=== PATIENT | male | born 1960 | race Hispanic/Latino ===

== ENCOUNTER 2017-12-25 07:25 | Day surgery (SDC) | payer MEDICARE ==
[2017-12-24 10:35] VITALS: BMI 23.4
[2017-12-25] MEDS ORDERED: Atropine Sulfate 1 mg/10 ml Syringe ONE (08:54)
[2017-12-25] MEDS ORDERED: PROPOFOL 20 ML ONE (08:54)
[2017-12-25] MEDS ORDERED: Lidocaine 1% PF 5 ML VIAL ONE ×2 (08:54→15:42)
[2017-12-25] MEDS ORDERED: Apixaban 5 MG TAB PO SCH (09:15)
--- NOTE | 2017-12-25 09:53 | ECHO ---
TRANSESOPHAGEAL ECHOCARDIOGRAM: DATE OF SERVICE: 12/25/17 Mr. Powell was brought to the outpatient area for planned transesophageal echocardiogram. The anesthesia department provided anesthesia for the patient. Please see their notes for details. After adequate sedation was achieved, the transesophageal probe was inserted into the patient's mouth and into the esophagus successfully without any problems. Multiplanar views were then obtained. FINDINGS: Left ventricle appears to be normal size. LV function is reduced at about 30-35%, with global hypokin esis. Left atrium is mildly dilated. Left atrial appendage is occluded with no flow into or out of the appe ndage. Right ventricle is normal size. Right atrium is mildly dilated. Interatrial septum appears to be intact by color Doppler. Aortic valve has three cusps. No stenosis or regurgitation. Mitral valve structurally normal. There is mild MR. No stenosis. Tricuspid valve is structurally normal. Mild to moderate TR. No stenosis. Pulmonary valve structurally normal. No stenosis. Mild pulmonary insufficiency. Descending thoracic aorta has Grade II atherosclerotic disease. No aneurysmal dilatations or dissections. CONCLUSIONS: 1. Reduced systolic function, EF of 30-35%. 2. Mild biatrial enlargement. 3. Mild MR. 4. Mild to moderate TR. 5. Mild PI. 6. Left atrial appendage is occluded with no flow into or out of it, consistent with history of left atrial appendage ligation.
--- NOTE | 2017-12-25 09:56 | OP ---
CARDIOLOGY PROCEDURE NOTE: Date: 12/25/17 PREPROCEDURE DIAGNOSIS: Atrial fibrillation. PROCEDURE PERFORMED: Cardioversion. SUMMARY: Mr. Powell is a pleasant 57-year-old gentleman who comes to the outpatient area for plann ed cardioversion. Please see ALONDRA report preliminary reports. After his left atrial appendage was found to be occluded from a known ligation, he received a single synchronized 50 joules shock, successfully converting him from atrial fibrillation/atrial flutter int o sinus rhythm at 60 beats per minute. Patient tolerated the procedure well. Continue Eliquis and ami odarone for now. Will most likely stop Eliquis after 1 month.
[2017-12-25] MEDS ORDERED: PROPOFOL 200 MG/20 ML VIAL ONE (15:42)
== END 2017-12-25 10:08 | disposition home or self-care (01) ==
LOC: CCL 07:25
PROVIDERS: ATTEND Internal Medicine Cardiovascular Disease
DX: I48.1 Persistent atrial fibrillation (principal); I25.5 Ischemic cardiomyopathy; E11.22 Type 2 diabetes mellitus with diabetic chronic kidney disease; I12.0 Hypertensive chronic kidney disease with stage 5 chronic kidney disease or end stage renal disease; N18.6 End stage renal disease; F17.210 Nicotine dependence, cigarettes, uncomplicated; E78.5 Hyperlipidemia, unspecified; Z79.01 Long term (current) use of anticoagulants; Z79.82 Long term (current) use of aspirin; Z79.899 Other long term (current) drug therapy
CPT/HCPCS: 92960; 93312; J0461; J2001; J2704

== ENCOUNTER 2019-07-11 13:30 | Inpatient (IN) | payer MEDICARE ==
[2019-07-11 14:59] LABS: #Basophils 0.1 thou/uL (0.0-0.2); #Eosinphils 0.3 thou/uL (0.0-0.7); #Lymphocytes 1.4 thou/uL (1.20-3.40); #Monocytes 0.5 thou/uL (0.11-0.59); #Neutrophils 7.1 thou/uL (1.40-6.50); %Basophils 0.7 % (0.0-1.0); %Lymphocytes 15.2 % (21.0-51.0); %Monocytes 5.6 % (0.0-10.0); %Neutrophils 75.5 % (42.0-75.0); Hemoglobin 10.8 g/dL (14.0-18.0); Mean Corpuscular HGB CONC 33.6 g/dL (32.0-36.0); Mean Corpuscular Hemoglobin 30.7 pg (27.0-31.0); Mean Corpuscular Volume 91.5 fL (78.0-98.0); Mean Platelet Volume 8.9 fL (7.4-10.4); Platelet Count 198 thou/uL (130-400); RBC Distribution Width 12.7 % (11.5-14.5); White Blood Cell (WBC) Count 9.4 thou/uL (4.8-10.8)
[2019-07-11 15:22] LABS: ALT (SGPT) 9 U/L (8-55); AST (SGOT) 11 U/L (5-34); Albumin 3.7 g/dL (3.5-5.0); Alkaline Phosphatase 184 U/L (40-110); Anion Gap 17 mmol/L (10-20); BUN (Urea Nitrogen) 44 mg/dL (8.4-25.7); Bilirubin, Total 0.6 mg/dL (0.2-1.2); Calc. Creatinine Clearance 0 mL/min (70-130); Calcium 8.8 mg/dL (7.8-10.44); Carbon Dioxide 30 mmol/L (22-29); Chloride 90 mmol/L (98-107); Estimated GFR-MDRD 7; Glucose 376 mg/dL (70-105); Protein, Total 7.7 g/dL (6.0-8.3); Sodium 133 mmol/L (136-145)
--- NOTE | 2019-07-11 17:00 | RAD ---
EXAM: XR Foot Lt 3 View STANDARD PROVIDED CLINICAL HISTORY: Nonhealing wound COMPARISON: None FINDINGS: There is absence of the second digit distal phalanx and third digit, presumably on a postsurgical bas is. There is lucency/gas density seen within the soft tissues immediately distal to the remaining second digit presumably reflecting the provided clinical history of wound. There is no definite lytic change evident. No evidence for fracture. Alignment appears anatomic. Joint spaces appear preserved. Extensive vascular calcifications are seen. IMPRESSION: No radiographic evidence for osteomyelitis.
--- NOTE | 2019-07-11 18:28 | PDOC.HHP ---
Hospitalist HPI - History of Present Illness Gangrene of second right toe History of Present Illness: Mr. Powell is a 58 y/o gentleman with PMH of ESRD on HD, T2DM, HTN, who presents to the ED with gangrene of the second toe on the left lower exremity. 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 He states this happened after he clipped is toenail. He was given Vancomycin during his dialysis sessions, but states that the toe started turning more black in the past couple of days. Additionally, there was an area of redness which started forming around the toe. States that over the past 12 over the entire 2nd toe started to become black. Denies fever, chills, nausea, vomiting, cp, sob, or other associated sxs. Hospitalist ROS - Review of Systems Constitutional: denies: fever, chills, sweats, weakness, malaise, other Eyes: denies: pain, vision change, conjunctivae inflammation, eyelid inflammation, redness, other ENT: denies: ear pain, ear discharge, nose pain, nose discharge, nose congestion , mouth pain, mouth swelling, throat pain, throat swelling, other Respiratory: denies: cough, dry, shortness of breath, hemoptysis, SOB with excertion, pleuritic pain, sputum, wheezing, other Cardiovascular: denies: chest pain, palpitations, orthopnea, paroxysmal noc. dyspnea, edema, light headedness, other Gastrointestinal: denies: nausea, vomiting, abdominal pain, diarrhea, constipation, melena, hematochezia, other Genitourinary: denies: dysuria, frequency, incontinence, hematuria, retention, other Musculoskeletal: denies: neck pain, shoulder pain, arm pain, back pain, hand pain, leg pain, foot pain, other Skin: denies: rash, lesions, valentin, bruising, other Neurological: denies: weakness, numbness, incoordination, change in speech, confusion, seizures, other - Medication Medications: Medication Instructions Recorded Confirmed Type Carvedilol [Coreg] 3.125 mg PO BID-WM #0 tab 04/16/16 12/25/17 Rx Diltiazem CD [Cardizem CD] 120 mg PO DAILY #0 cap 04/18/16 12/25/17 Rx Aspirin [Ecotrin Regular Strength] 325 mg PO DAILY tab 04/30/16 12/25/17 Rx Ferrous Sulfate 325 mg PO DAILY #30 tablet 04/30/16 12/25/17 Rx Amiodarone HCl 1 tab PO DAILY 12/24/17 12/25/17 History Atorvastatin Calcium [Lipitor] 40 mg PO DAILY 12/24/17 12/25/17 History Calcitriol [Rocaltrol] 0.75 mcg PO ASDIR 12/24/17 12/25/17 History Calcium Carbonate [Tums Ultra 1 tab PO TID 12/24/17 12/24/17 History Strength] Cinacalcet HCl [Sensipar] 1 tab PO ASDIR 12/24/17 12/25/17 History Sucroferric Oxyhydroxide [Velphoro] 2 tab PO TID 12/24/17 12/24/17 History Vit D3-Vit K/Berberine/Hops 1 tab PO DAILY 12/24/17 12/25/17 History [Ostera Tablet] tiZANidine HCl [Tizanidine HCl] 1 tab PO Q8HR PRN 12/24/17 12/25/17 History Acetaminophen [Tylenol] 1,000 mg PO Q6HR PRN 12/25/17 12/25/17 History Amlodipine [Norvasc] 10 mg PO DAILY 12/25/17 12/25/17 History Apixaban [Eliquis] 5 mg PO BID 12/25/17 12/25/17 History Epoetin [Procrit] 10,000 units SC MWF 12/25/17 12/25/17 History HYDROcodone Bit/APAP 5/325 [[place] 2 tab PO Q6HR PRN 12/25/17 12/25/17 History 5/325] Hospitalist History - Past Medical History Cardiac: reports: HTN Pulmonary: reports: no pertinent history 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 Gastrointestinal: reports: no pertinent history Heme/Onc: reports: no pertinent history Hepatobiliary: reports: no pertinent history Psych: reports: no pertinent history Musculoskeletal: reports: no pertinent history Rheumatologic: reports: no pertinent history Infectious Disease: reports: no pertinent history ENT: reports: no pertinent history Renal/: reports: Chronic renal insuff Endocrine: reports: Diabetes Dermatology: reports: no pertinent history - Past Surgical History Past Surgical History: reports: Other (History of right BKA) - Family History Family History: reports: hypertension - Social History Smoking Status: Former smoker Tobacco Type: cigarettes Alcohol: reports: None Drugs: reports: none Living Situation: With Family Activity level: independent ambulation (uses prosthetic leg) - Exam General Appearance: NAD, awake alert Eye: PERRL, anicteric sclera ENT: normocephalic atraumatic, no oropharyngeal lesions, moist mucosa Neck: supple, symmetric, no JVD, no thyromegaly, no lymphadenopathy, no carotid bruit Heart: RRR, no murmur, no gallops, no rubs, normal peripheral pulses Respiratory: CTAB, no wheezes, no rales, no ronchi, normal chest expansion, no tachypnea, normal percussion Gastrointestinal: soft, non-tender, non-distended, normal bowel sounds, no palpable masses, no hepatomegaly, no splenomegaly, no bruit Extremities: no cyanosis, no clubbing, no edema Extremities - other findings: left foot, 2nd toe, necrotic, probe to bone, surrounding cellulits Skin: normal turgor, no lesions, no rashes Neurological: cranial nerve grossly intact, normal sensation to touch, no weakness, no focal deficits, no new deficit Musculoskeletal - other findings: Right BKA, chronic stump Psychiatric: normal affect, normal behavior, A&O x 3 Hospitalist Results - Labs Result Diagrams: 07/11/19 14:46 07/11/19 14:46 Lab results: WBC 9.4 thou/uL (4.8-10.8) 07/11/19 14:46 Hgb 10.8 g/dL (14.0-18.0) L 07/11/19 14:46 Hct 32.0 % (42.0-52.0) L 07/11/19 14:46 MCV 91.5 fL (78.0-98.0) 07/11/19 14:46 Plt Count 198 thou/uL (130-400) 07/11/19 14:46 Neutrophils % 75.5 % (42.0-75.0) H 07/11/19 14:46 ESR Westergren 78 mm/hr (Less than 20) 07/11/19 14:46 Sodium 133 mmol/L (136-145) L 07/11/19 14:46 Potassium 4.0 mmol/L (3.5-5.1) 07/11/19 14:46 Chloride 90 mmol/L (98-107) L 07/11/19 14:46 Carbon Dioxide 30 mmol/L (22-29) H 07/11/19 14:46 BUN 44 mg/dL (8.4-25.7) H 07/11/19 14:46 Creatinine 8.15 mg/dL (0.7-1.3) H 07/11/19 14:46 Glucose 376 mg/dL (70-105) H 07/11/19 14:46 Lactic Acid 1.7 mmol/L (0.5-2.2) 07/11/19 14:46 Calcium 8.8 mg/dL (7.8-10.44) 07/11/19 14:46 Total Bilirubin 0.6 mg/dL (0.2-1.2) 07/11/19 14:46 AST 11 U/L (5-34) 07/11/19 14:46 ALT 9 U/L (8-55) 07/11/19 14:46 Alkaline Phosphatase 184 U/L (40-110) H 07/11/19 14:46 C-Reactive Protein 8.07 mg/dL (= or < 0.5) H 07/11/19 14:46 Serum Total Protein 7.7 g/dL (6.0-8.3) 07/11/19 14:46 Albumin 3.7 g/dL (3.5-5.0) 07/11/19 14:46 Additional comment: VITAL SIGNS Mon Jul 11, 2019 18:03 LANDON Wu, Natalie BP: 213/79, MAP: 123, Pulse: 75, Resp: 16, Temp: 98.5 (Oral), Pain: 0, O2 sat: 99 on (Room Air), Time: 07/11/2019 18:03. Hospitalist H&P A/P - Problem (1) Gangrene of toe of left foot Code(s): I96 - GANGRENE, NOT ELSEWHERE CLASSIFIED Status: Acute (2) ESRD on hemodialysis Code(s): N18.6 - END STAGE RENAL DISEASE; Z99.2 - DEPENDENCE ON RENAL DIALYSIS Status: Chronic (3) T2DM (type 2 diabetes mellitus) Status: Chronic (4) History of below knee amputation Code(s): Z89.519 - ACQUIRED ABSENCE OF UNSPECIFIED LEG BELOW KNEE Status: Chronic (5) Hypertension Code(s): I10 - ESSENTIAL (PRIMARY) HYPERTENSION Status: Chronic - Plan Plan: Admit to med/surg inpatient. Likely > 2 midnight required in eval and tx Discussed with surgery team, they will likely take patient to OR tonight NPO for now Vancomycin dose as per pharmacy, follow up blood cultures XR of foot negative; however on exam bone is exposed US peripheral arterial study Consult nephro for dialysis as per schedule Medication reconciliation to be started DVT Prophyalxis: Hold for now, prior to surgery Code status: Full code ACP: is surrogate decision maker Disposition: Admit to surgical. Coordinate with surgical team, they are planning amputation of toe tonight. Follow up culture report.
[2019-07-11] MEDS ORDERED: Cefepime 2 GM VIAL ONE (18:32)
[2019-07-11] MEDS ORDERED: Vancomycin HCl 1.25 GM in Sodium Chloride 0.9% 250 ML 250 ML IVPB SCH (19:00)
--- NOTE | 2019-07-11 19:58 | HP ---
HISTORY OF PRESENT ILLNESS: Cynthia Powell is a 58-year-old male, dialyzes on Thursday, , and Thursday. He has developed a left second toe gangrene, rapidly progressive with cellulitis over the dorsum of his foot. He is status post right BKA. He has been followed by the dialysis center, watching the left second toe, he was referred to Dr. Arciniega, who recommended local wound care with the Nu Gauze. Dorsum of the foot became reddened. He presents to the emergency room. He has Doppler of dorsalis pedis pulse, palpable posterior tibial pulse and gangrene of the left second toe with exposed phalanx. Plan is for amputation of the left second toe. He understands risks and benefits, consents. PAST MEDICAL HISTORY: 1. Diabetes mellitus. 2. End-stage renal disease. 3. History of amputation. 4. BKA, right. 5. . 6. Diabetes mellitus type 2. 7. End-stage renal disease, dialysis on Thursday, , Thursday, followed by Dr. Caceres. 8. History of atrial fibrillation, cardioversion, followed by Dr. Erickson. PAST SURGICAL HISTORY: 1. Guillotine amputation, right leg, status post BKA. 2. Left eye surgery. 3. Left arm fistula. 4. Coronary artery bypass grafting, three vessels. ALLERGIES: ZOSYN. SOCIAL HISTORY: The patient lives in [place], has 3 children. Former tobacco use, cessation in the past. MEDICATIONS: 1. Aspirin. 2. Glipizide. 3. Iron. PHYSICAL EXAMINATION: VITAL SIGNS: 82 heart rate, 16 respirations, 98.2 degrees temperature. HEAD, EARS, EYES, NOSE, AND THROAT: Unremarkable. LUNGS: Clear to auscultation. CARDIAC: Regular rate and rhythm without murmur or gallop. ABDOMEN: Soft and nontender. EXTREMITIES: Unremarkable BKA, status post well-healed BKA stump. Left second toe gangrene, foul smelling, exposed phalanx. Palpable dorsalis pedis pulse. Palpable popliteal pulse. LABORATORY DATA: White count 9, hemoglobin 10. Sodium 133, potassium 4. ASSESSMENT: Left second toe gangrene. PLAN: Amputation, he has received vancomycin a few days ago . He understands possibly progression of the ischemic process. Currently, seems to have adequate blood supply. Job ID: [id number]
[2019-07-11] MEDS ORDERED: Fentanyl 100 MCG/2 ML VIAL SLOW IVP PRN (21:58)
[2019-07-11] MEDS ORDERED: HYDROcodone/Acetaminophen 5/325 mg Tablet PO PRN ×2 (21:59)
[2019-07-11] MEDS ORDERED: Ondansetron ODT 4 MG TAB SL PRN (21:59)
[2019-07-11] MEDS ORDERED: Acetaminophen 325 MG TAB PO PRN (21:59)
[2019-07-11] MEDS ORDERED: Ondansetron PF 4 MG/2 ML Vial IVP PRN (21:59)
[2019-07-11] MEDS ORDERED: Sodium Chloride 0.9% 1,000 ML IV SCH (21:59)
[2019-07-11 22:18] VITALS: BMI 20.8
[2019-07-11] MEDS ORDERED: Dextrose 5% in Water 1,000 ML IV PRN (22:32)
[2019-07-11] MEDS ORDERED: Dextrose 50% Abboject 50 ML SYRINGE SLOW IVP PRN (22:32)
[2019-07-11] MEDS ORDERED: HumaLOG 300 UNITS/3 ML VIAL SC PRN (22:32)
[2019-07-11] MEDS ORDERED: Carvedilol 3.125 MG TAB PO SCH (22:45)
[2019-07-11] MEDS ORDERED: Amlodipine 10 MG TAB PO SCH (22:45)
[2019-07-11] MEDS: hydrALAZINE 20 MG/ML VIAL SLOW IVP PRN (23:56)
[2019-07-12 06:46] LABS: Hemoglobin 10.3 g/dL (14.0-18.0); Mean Corpuscular HGB CONC 33.4 g/dL (32.0-36.0); Mean Corpuscular Hemoglobin 30.9 pg (27.0-31.0); Mean Corpuscular Volume 92.6 fL (78.0-98.0); Mean Platelet Volume 9.3 fL (7.4-10.4); Platelet Count 190 thou/uL (130-400); RBC Distribution Width 12.7 % (11.5-14.5); Red Blood Cell (RBC) Count 3.35 mill/uL (4.70-6.10); White Blood Cell (WBC) Count 8.3 thou/uL (4.8-10.8)
[2019-07-12 06:49] LABS: Eosinophils 1 % (0-10); Hypochromia SLIGHT = 6-15 cells (100X) (0-5/hpf); Lymphocytes 15 % (21-51); MDiff Complete? YES; Monocytes 4 % (0-10); Neutrophil 80 % (42-75); Platelet Morphology Comment Appears Adequate
--- NOTE | 2019-07-12 08:37 | ULT ---
LEFT LOWER EXTREMITY ARTERIAL ULTRASOUND: CLINICAL HISTORY: Left toe gangrene. FINDINGS: From the level of the common femoral artery through the level of the thigh there is a predominant bip hasic wave-form. Triphasic wave-form is elicited at the popliteal artery. Monophasic wave-forms are elicited below the level the knee. Peak systolic velocity of the left thigh is measured at 128 cm/s w ithin the common femoral artery. There is a notable drop in velocity from the level of the popliteal artery to the anterior tibial and posterior tibial arteries. IMPRESSION: Moderate to severe multifocal disease is depicted by sonographic evaluation of the left lower extremi ty arterial system. Most notable disease is suggested below the level of the popliteal artery. Correlation with conventional arteriogram may prove useful for further assessment. Transcribed Date/Time: 07/12/2019 8:53 AM
[2019-07-12] MEDS ORDERED: Vancomycin HCl 1 GM in Premix Bag 1 BAG IVPB SCH (09:00)
[2019-07-12] MEDS ORDERED: Vancomycin HCl 250 MG in Sodium Chloride 0.9% 100 ML IVPB SCH (09:00)
[2019-07-12] MEDS ORDERED: Vancomycin HCl 750 MG in Sodium Chloride 0.9% 250 ML 250 ML IVPB SCH (09:00)
[2019-07-12] MEDS ORDERED: Vancomycin HCl 500 MG in Sodium Chloride 0.9% 100 ML IVPB SCH (09:00)
[2019-07-12] MEDS ORDERED: HOLD VANCOMYCIN FOR LEVEL >20 FS SCH (09:00)
[2019-07-12] MEDS: Carvedilol 3.125 MG TAB PO SCH ×2 (09:39→18:44)
[2019-07-12] MEDS: Amlodipine 10 MG TAB PO SCH (09:39)
[2019-07-12 09:44] LABS: Vancomycin, Random 29.4 ug/mL (See Comment)
--- NOTE | 2019-07-12 09:58 | CON ---
DATE OF CONSULTATION: HISTORY OF PRESENT ILLNESS: Mr. Powell is a 58-year-old male with ESRD, on maintenance hemodialysis, and admitted for gangrenous 2nd left toe. He has a planned surgery. We are being consulted for management of his ESRD. I have scheduled him for dialysis this afternoon. He has surgery to be done at 7 p.m. REVIEW OF SYSTEMS: Positive for left 2nd toe discoloration. Denies any fever. No chest pain. No nausea or vomiting. No shortness of breath. No headache. No diplopia. Appetite and energy level are fair. No dysuria. No gross hematuria. No urinary frequency. No hematochezia. No melena. No hematemesis. MEDICATIONS: 1. Carvedilol 3.125 mg p.o. b.i.d. 2. Diltiazem CD 120 mg daily. 3. Aspirin 325 mg once a day. 4. Ferrous sulfate 325 mg once a day. 5. Amiodarone one tablet daily. 6. Atorvastatin 40 mg tablet nightly. 7. Calcitriol 0.75 mcg 3 times a week. 8. Sensipar one tablet 3 times a week. 9. Velphoro two tablets p.o. t.i.d. with meals. 10. Vitamin D3 one tablet daily. 11. Tizanidine one tablet q.8 p.r.n. 12. Amlodipine 10 mg once a day. 13. Eliquis 5 mg p.o. b.i.d. 14. Hydrocodone p.r.n. PAST MEDICAL HISTORY: 1. Peripheral vascular disease. 2. Longstanding hypertension. 3. ESRD from diabetic nephropathy. 4. Type 2 diabetes mellitus. 5. Hyperlipidemia. 6. Status post cellulitis. 7. Cardiac arrhythmia. PAST SURGICAL HISTORY: 1. Status post right great toe amputation. 2. Status post right BKA. 3. Status post AV fistula placement. 4. Status post cuffed hemodialysis catheter placement. 5. Status post right hand surgery. 6. Status post left eye surgery. SOCIAL HISTORY: The patient lives in [place], 3 children. He is . Smoked tobacco for 30 years, one pack a day. Alcohol, none. Education, high school. 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 FAMILY HISTORY: No family history of ESRD. ALLERGIES: NONE. TRAUMA: None. IMMUNIZATIONS: Up-to-date. HOSPITALIZATIONS: Please see past medical history. PHYSICAL EXAMINATION: VITAL SIGNS: Blood pressure is noted at 133/63, heart rate 73, respiratory rate 19, temperature 99.7, and pulse ox 98%. GENERAL: Noted to be awake, alert, comfortable, not in distress. SKIN: Adequate turgor. HEENT: Pinkish conjunctivae. Anicteric sclerae. NECK: No neck mass. No carotid bruits. No JVD. CHEST: No deformities. LUNGS: Clear breath sounds. No wheezing. No crackles. HEART: Normal sinus rhythm. No murmur. No gallops. No rubs. ABDOMEN: Globular, soft, and nontender. No masses. EXTREMITIES: Status post right BKA. He has left 2nd toe gangrenous lesion. LABORATORY DATA: On 07/12/2019: White count 8.3 and hemoglobin 10.3. On 07/11/2019: Sodium 133, potassium 4, chloride 90, carbon dioxide 30, BUN 44, creatinine 8.15, glucose 376, AST 11, and ALT 9. On 07/12/2019: Glucose 172. ASSESSMENT AND PLAN: 1. End-stage renal disease from diabetic nephropathy, continuing 3 times a week hemodialysis. I have scheduled him for his regular dialysis this afternoon. Review of his last Kt/V suggests he is adequately dialyzed with the current dialysis regimen. 2. Left 2nd toe gangrene, for possible toe amputation. Surgery is following. 3. Borderline anemia. We will continue to observe. 4. Agree with current management. Job ID: [id number]
[2019-07-12] MEDS ORDERED: PROPOFOL 200 MG/20 ML VIAL ONE (10:25)
[2019-07-12] MEDS ORDERED: Lidocaine 1% PF 5 ML VIAL ONE (10:25)
[2019-07-12] MEDS ORDERED: traMADol HCl 50 MG TAB PO PRN (10:38)
--- NOTE | 2019-07-12 14:47 | PDOC.HOSPP ---
- Subjective Subjective: No complaints this AM. Will go for surgery later today. NO sxs of fever, cough, or other sxs. - Objective Vital Signs & Weight: Vital Signs (12 hours) Temp Pulse Resp BP BP Pulse Ox 07/12/19 10:50 98.7 F 70 20 149/70 H 100 07/12/19 09:39 71 162/64 H 07/12/19 09:37 71 162/64 H 07/12/19 09:30 98.5 F 71 16 162/64 H 97 07/12/19 04:58 99.7 F H 73 19 133/63 98 Weight Weight 145 lb 8.081 oz I&O: 07/11/19 07/12/19 07/13/19 06:59 06:59 06:59 Intake Total 250 Balance 250 Result Diagrams: 07/12/19 05:50 07/11/19 14:46 Additional Labs: Accuchecks 07/12/19 07/11/19 05:42 22:14 POC Glucose 172 H 292 H Hospitalist ROS - Review of Systems Constitutional: denies: fever, chills, sweats, weakness, malaise, other Respiratory: denies: cough, dry, shortness of breath, hemoptysis, SOB with excertion, pleuritic pain, sputum, wheezing, other Cardiovascular: denies: chest pain, palpitations, orthopnea, paroxysmal noc. dyspnea, edema, light headedness, other Gastrointestinal: denies: nausea, vomiting, abdominal pain, diarrhea, constipation, melena, hematochezia, other - Medication Medications: Active Medications Generic Name Dose Route Start Last Admin Trade Name Arminq PRN Reason Stop Dose Admin Amlodipine Besylate 10 mg 07/12/19 09:00 07/12/19 09:39 Norvasc PO 10 mg DAILY CODEY Administration Carvedilol 3.125 mg 07/12/19 08:00 07/12/19 09:39 Coreg PO 3.125 mg BID-WM CODEY Administration Diltiazem HCl 120 mg 07/12/19 09:00 07/12/19 09:37 Cardizem Cd PO 120 mg DAILY CODEY Administration Hydralazine HCl 10 mg 07/11/19 23:39 07/11/19 23:56 Apresoline SLOW IVP 10 mg Q4H PRN Administration SBP Greater Than 180 Sodium Chloride 10 ml 07/11/19 21:00 07/12/19 09:39 Flush - Normal Saline IVF 10 ml Q12HR CODEY Administration - Exam General Appearance: NAD, awake alert Eye: PERRL, anicteric sclera ENT: normocephalic atraumatic, no oropharyngeal lesions, moist mucosa Neck: supple, symmetric, no JVD, no thyromegaly, no lymphadenopathy, no carotid bruit Heart: RRR, no murmur, no gallops, no rubs, normal peripheral pulses Respiratory: CTAB, no wheezes, no rales, no ronchi, normal chest expansion, no tachypnea, normal percussion Gastrointestinal: soft, non-tender, non-distended, normal bowel sounds, no palpable masses, no hepatomegaly, no splenomegaly, no bruit Extremities: no edema Extremities - other findings: periheral pulses diminished, gangrenous 2nd toe on left foot Skin: normal turgor, no lesions, no rashes Neurological: cranial nerve grossly intact, no weakness, no focal deficits, no new deficit Musculoskeletal: normal tone, normal strength, no muscle wasting Musculoskeletal - other findings: right BKA Psychiatric: normal affect, normal behavior, A&O x 3 Hosp A/P (1) Gangrene of toe of left foot Code(s): I96 - GANGRENE, NOT ELSEWHERE CLASSIFIED Status: Acute (2) ESRD on hemodialysis Code(s): N18.6 - END STAGE RENAL DISEASE; Z99.2 - DEPENDENCE ON RENAL DIALYSIS Status: Chronic (3) T2DM (type 2 diabetes mellitus) Status: Chronic (4) History of below knee amputation Code(s): Z89.519 - ACQUIRED ABSENCE OF UNSPECIFIED LEG BELOW KNEE Status: Chronic (5) Hypertension Code(s): I10 - ESSENTIAL (PRIMARY) HYPERTENSION Status: Chronic - Plan Continue vancomycin, dosed to [facility]/severe PVD below the level of the popliteal artery Continue wound care Continue dialysis as per nephro Disposition: Surgery this afternoon.
[2019-07-12] MEDS ORDERED: Cefepime 2 GM in Sodium Chloride 0.9% 100 ML IVPB SCH (16:45)
[2019-07-12] MEDS ORDERED: Fentanyl 100 MCG/2 ML VIAL ONE (17:51)
[2019-07-12] MEDS ORDERED: Ondansetron HCl/PF 4 MG/2 ML Vial IVP PRN (18:42)
[2019-07-12] MEDS ORDERED: Promethazine HCl 25 MG/ML VIAL IM PRN (18:42)
[2019-07-12] MEDS ORDERED: Promethazine HCl 25 MG/ML VIAL SLOW IVP PRN (18:42)
[2019-07-13] MEDS: HumaLOG 300 UNITS/3 ML VIAL SC PRN ×3 (06:51→18:37)
[2019-07-13 07:24] LABS: Bacteria/HPF None Seen HPF (None Seen); Bilirubin Negative (Negative); Blood, Urine Trace (Negative); Clarity Clear (Clear); Glucose, Urine (Dipstick) >=1000 mg/dL (Negative); Leukocyte Negative Leu/uL (Negative); Nitrite Negative (Negative); Protein, Urine (Dipstick) 600 mg/dL (Neg-Trace); RBC/HPF 0-3 HPF (0-3); Squamous Epithelial None Seen HPF (0-3); Urobilinogen Normal mg/dL (Less than 2); WBC/HPF 0-3 HPF (0-3)
[2019-07-13] MEDS: Acetaminophen 500 MG TAB PO PRN ×2 (09:11→18:38)
[2019-07-13] MEDS: hydrALAZINE 20 MG/ML VIAL SLOW IVP PRN (09:12)
[2019-07-13] MEDS: Amlodipine 10 MG TAB PO SCH (09:12)
[2019-07-13] MEDS: Carvedilol 3.125 MG TAB PO SCH ×2 (09:13→18:38)
--- NOTE | 2019-07-13 10:38 | PRG ---
DATE OF SERVICE: 07/13/2019 SUBJECTIVE: Mr. Powell is a 58-year-old male with ESRD and on maintenance hemodialysis. He underwent dialysis yesterday without any difficulty. He was admitted due to left second toe gangrene. He underwent a toe amputation with Dr. Almeida. In addition, the patient underwent a left lower extremity arterial ultrasound which showed [id number] multifocal disease. Most notable was that the disease was more below the level of the popliteal artery. No other complaints today. He denies any chest pain or shortness of breath. OBJECTIVE: VITAL SIGNS: Blood pressure 188/70, heart rate 77, respiratory rate 16, temperature 98.1, and pulse ox 98%. GENERAL: The patient is awake, alert, comfortable, not in overt distress. SKIN: Adequate turgor. HEENT: He has pinkish conjunctivae. Anicteric sclerae. NECK: No neck mass. No carotid bruits. No JVD. CHEST: No deformities. LUNGS: Clear breath sounds. HEART: Normal sinus rhythm. No murmur. No gallops. No rubs. ABDOMEN: Globular. Soft. Nontender. No masses. EXTREMITIES: No edema. Left foot, positive for a wound VAC. MEDICATIONS: Medications of July 13, 2019, were reviewed. LABORATORY DATA: Laboratories of July 12, 2019; white count 8.3, hemoglobin 10.3. Potassium 4.0, BUN 44, and creatinine 8.15. ASSESSMENT AND PLAN: 1. Borderline anemia. Start Epogen 7500 units subcu every week. 2. Left second toe gangrene - status post toe amputation. Continue supportive care. 3. Hypertension. Recently started on amlodipine 10 mg tablet once a day. 4. Agree with current management. Job ID: [id number]
[2019-07-13] MEDS ORDERED: EPOETIN ALFA-EPBX (ESRD) 4,000 UNIT/ML VIAL SC SCH (11:00)
--- NOTE | 2019-07-13 12:22 | PDOC.HOSPP ---
- Subjective Subjective: Has some episodes of diarrhea post surgery. He says he is fine but nursing staff has noticed BMs when cleaning him. No fever, chills, nausea, vomiting, cp , sob or other sxs. - Objective Vital Signs & Weight: Vital Signs (12 hours) Temp Pulse Resp BP BP Pulse Ox 07/13/19 09:12 77 188/70 H 07/13/19 09:05 98.7 F 77 16 188/70 H 98 07/13/19 03:20 98.1 F 72 16 154/71 H 98 Weight Weight 145 lb 8.081 oz I&O: 07/12/19 07/13/19 07/14/19 06:59 06:59 06:59 Intake Total 250 105 480 Output Total 1500 Balance 250 -1395 480 Result Diagrams: 07/12/19 05:50 07/11/19 14:46 Additional Labs: Accuchecks 07/13/19 07/12/19 07/12/19 05:54 20:44 16:48 POC Glucose 190 H 136 H 99 Hospitalist ROS - Review of Systems Constitutional: denies: fever, chills, sweats, weakness, malaise, other ENT: denies: ear pain, ear discharge, nose pain, nose discharge, nose congestion , mouth pain, mouth swelling, throat pain, throat swelling, other Respiratory: denies: cough, dry, shortness of breath, hemoptysis, SOB with excertion, pleuritic pain, sputum, wheezing, other Cardiovascular: denies: chest pain, palpitations, orthopnea, paroxysmal noc. dyspnea, edema, light headedness, other Gastrointestinal: denies: nausea, vomiting, abdominal pain, diarrhea, constipation, melena, hematochezia, other - Medication Medications: Active Medications Generic Name Dose Route Start Last Admin Trade Name Freq PRN Reason Stop Dose Admin Acetaminophen 1,000 mg 07/12/19 10:38 07/13/19 09:11 Tylenol PO 1,000 mg Q6H PRN Administration Moderate to Severe Pain (6-10) Amlodipine Besylate 10 mg 07/12/19 09:00 07/13/19 09:12 Norvasc PO 10 mg DAILY CODEY Administration Carvedilol 3.125 mg 07/12/19 08:00 07/13/19 09:13 Coreg PO 3.125 mg BID-WM CODEY Administration Diltiazem HCl 120 mg 07/12/19 09:00 07/13/19 09:12 Cardizem Cd PO 120 mg DAILY CODEY Administration Hydralazine HCl 10 mg 07/11/19 23:39 07/13/19 09:12 Apresoline SLOW IVP 10 mg Q4H PRN Administration SBP Greater Than 180 Insulin Human Lispro 0 units 07/11/19 22:32 07/13/19 06:51 Humalog SC 2 unit .MILD SLIDING SCALE PRN Administration Mild Correctional Scale Sodium Chloride 10 ml 07/11/19 21:00 07/13/19 09:13 Flush - Normal Saline IVF 10 ml Q12HR CODEY Administration - Exam General Appearance: NAD, awake alert Eye: PERRL, anicteric sclera ENT: normocephalic atraumatic, no oropharyngeal lesions, moist mucosa Neck: supple, symmetric, no JVD, no thyromegaly, no lymphadenopathy, no carotid bruit Heart: RRR, no murmur, no gallops, no rubs, normal peripheral pulses Respiratory: CTAB, no wheezes, no rales, no ronchi, normal chest expansion, no tachypnea, normal percussion Gastrointestinal: soft, non-tender, non-distended, normal bowel sounds, no palpable masses, no hepatomegaly, no splenomegaly, no bruit Extremities: no cyanosis, no clubbing, no edema Extremities - other findings: post amptuation of 2nd left toe, wound vac in place, history of right bka Skin: normal turgor, no lesions, no rashes Neurological: cranial nerve grossly intact, normal sensation to touch, no weakness, no focal deficits, no new deficit Musculoskeletal: normal tone, normal strength, no muscle wasting Psychiatric: normal affect, normal behavior, A&O x 3 Hosp A/P (1) Gangrene of toe of left foot Code(s): I96 - GANGRENE, NOT ELSEWHERE CLASSIFIED Status: Acute (2) ESRD on hemodialysis Code(s): N18.6 - END STAGE RENAL DISEASE; Z99.2 - DEPENDENCE ON RENAL DIALYSIS Status: Chronic (3) T2DM (type 2 diabetes mellitus) Status: Chronic (4) History of below knee amputation Code(s): Z89.519 - ACQUIRED ABSENCE OF UNSPECIFIED LEG BELOW KNEE Status: Chronic (5) Hypertension Code(s): I10 - ESSENTIAL (PRIMARY) HYPERTENSION Status: Chronic - Plan Continue vancomycin, dosed to ESRD with dialysis Wound care post surgery US peripheral vascular study shows moderate/severe PVD below the level of the popliteal artery Continue wound care Continue dialysis as per nephro Consult ID, as surgical culture is pending Disposition: Pending ID and further surgery reccs. Surgical wound culture pending. Wound care dispo pending.
--- NOTE | 2019-07-13 13:08 | PRG ---
DATE OF SERVICE: 07/13/2019 SUBJECTIVE: Mr. Powell is doing well today. He is not having any complaints. His pain is minimal. He has a wound VAC applied to his left foot from amputation of left second toe. At the time of operation, he had purulent discharge. Cultures obtained intraoperatively, revealed gram-negative rods. He is on antibiotics. Wound VAC is applied. PLAN: Plan at this time is to review his wound on Thursday. If his wound looks good, he can be discharged to home on oral antibiotics for a week and a half and to follow up in my office in 2 to 3 weeks. Continue wound VAC and intravenous antibiotics now. Keep pressure off his heels to prevent decubitus. Job ID: [id number]
[2019-07-14 06:12] LABS: #Basophils 0.1 thou/uL (0.0-0.2); #Eosinphils 0.5 thou/uL (0.0-0.7); #Monocytes 0.6 thou/uL (0.11-0.59); #Neutrophils 5.3 thou/uL (1.40-6.50); %Basophils 0.9 % (0.0-1.0); %Eosinophils 6.3 % (0.0-10.0); %Lymphocytes 23.3 % (21.0-51.0); %Monocytes 7.4 % (0.0-10.0); %Neutrophils 62.2 % (42.0-75.0); Hemoglobin 9.9 g/dL (14.0-18.0); Mean Corpuscular HGB CONC 32.9 g/dL (32.0-36.0); Mean Corpuscular Hemoglobin 29.7 pg (27.0-31.0); Mean Corpuscular Volume 90.2 fL (78.0-98.0); Mean Platelet Volume 9.3 fL (7.4-10.4); Platelet Count 180 thou/uL (130-400); RBC Distribution Width 12.8 % (11.5-14.5); Red Blood Cell (RBC) Count 3.35 mill/uL (4.70-6.10); White Blood Cell (WBC) Count 8.5 thou/uL (4.8-10.8)
[2019-07-14 06:39] LABS: Anion Gap 19 mmol/L (10-20); BUN (Urea Nitrogen) 37 mg/dL (8.4-25.7); Calc. Creatinine Clearance 11 mL/min (70-130); Calcium 8.3 mg/dL (7.8-10.44); Carbon Dioxide 23 mmol/L (22-29); Chloride 93 mmol/L (98-107); Estimated GFR-MDRD 8; Glucose 118 mg/dL (70-105); Potassium 4.5 mmol/L (3.5-5.1); Sodium 130 mmol/L (136-145)
[2019-07-14] MEDS: Carvedilol 3.125 MG TAB PO SCH ×2 (08:01→17:05)
[2019-07-14] MEDS: Amlodipine 10 MG TAB PO SCH ×2 (08:03→17:05)
--- NOTE | 2019-07-14 09:00 | PRG ---
DATE OF SERVICE: 07/14/2019 SERVICE: Renal Medicine. SUBJECTIVE: Mr. Powell is a 58-year-old male with ESRD, on maintenance hemodialysis and currently undergoing dialysis today. Attempting to remove between 2 and 3 L of fluid. He recently had a left second toe amputation done due to gangrene. He is doing well since the surgery. He is on IV antibiotics. No other complaints. No chest pain or shortness of breath. OBJECTIVE: VITAL SIGNS: Blood pressure 132/52, heart rate 66, respiratory rate 16, temperature 98.3, and pulse ox 97%. GENERAL: Noted to be awake, alert, comfortable, not in distress. SKIN: Adequate turgor. HEENT: Pinkish conjunctivae. Anicteric sclerae. NECK: No neck mass. No carotid bruits. No JVD. CHEST: No deformities. LUNGS: Clear breath sounds. No wheezing. No crackles. HEART: Normal sinus rhythm. No murmur. No gallops. No rubs. ABDOMEN: Globular, soft, and nontender. No masses. EXTREMITIES: Status post right BKA, status post second left toe amputation - positive wound VAC on the left foot. MEDICATIONS: Medications of July 14, 2019, was reviewed. LABORATORY DATA: Laboratories of July 14, 2019, white count 8.5, hemoglobin 9.9. Sodium 130, potassium 4.5, chloride 93, carbon dioxide 23, BUN 37, creatinine 7.19, glucose 118, and calcium 8.3. ASSESSMENT AND PLAN: 1. End-stage renal disease, stable, continuing Thursday, , and Thursday hemodialysis regimen, using no heparin due to the recent foot surgery. Fluid removal only as tolerated. 2. Second left toe infection - status post toe amputation. Doing well on wound VAC and on IV antibiotics. Surgery is following. 3. Anemia, continuing weekly Epogen. Job ID: [id number]
--- NOTE | 2019-07-14 12:55 | PDOC.HOSPP ---
- Subjective Encounter Date: 07/14/19 Encounter Time: 09:00 Subjective: getting HD, no sob or pain - Objective Vital Signs & Weight: Vital Signs (12 hours) Temp Pulse Resp BP BP Pulse Ox 07/14/19 08:03 66 132/52 L 07/14/19 07:40 97 07/14/19 07:32 98.3 F 66 16 132/52 L 97 07/14/19 04:55 98 F 65 16 130/67 98 Weight Weight 145 lb 8.081 oz I&O: 07/13/19 07/14/19 07/15/19 06:59 06:59 06:59 Intake Total 105 1605 Output Total 1500 Balance -1395 1605 Result Diagrams: 07/14/19 05:41 07/14/19 05:41 Additional Labs: Accuchecks 07/14/19 07/13/19 07/13/19 05:48 21:18 16:39 POC Glucose 129 H 214 H 242 H 07/13/19 13:09 POC Glucose 273 H Hospitalist ROS - Medication Medications: Active Medications Generic Name Dose Route Start Last Admin Trade Name Freq PRN Reason Stop Dose Admin Acetaminophen 1,000 mg 07/12/19 10:38 07/13/19 18:38 Tylenol PO 1,000 mg Q6H PRN Administration Moderate to Severe Pain (6-10) Amlodipine Besylate 10 mg 07/12/19 09:00 07/14/19 08:03 Norvasc PO Not Given DAILY [facility] Carvedilol 3.125 mg 07/12/19 08:00 07/14/19 08:01 Coreg PO Not Given BID-[facility] Diltiazem HCl 120 mg 07/12/19 09:00 07/14/19 08:03 Cardizem Cd PO Not Given DAILY CODEY Epoetin Zac-epbx 7,500 unit 07/13/19 11:00 07/13/19 13:09 Retacrit SC 7,500 unit Q7D CODEY Administration Hydralazine HCl 10 mg 07/11/19 23:39 07/13/19 09:12 Apresoline SLOW IVP 10 mg Q4H PRN Administration SBP Greater Than 180 Insulin Human Lispro 0 units 07/11/19 22:32 07/13/19 18:37 Humalog SC 3 unit .MILD SLIDING SCALE PRN Administration Mild Correctional Scale Insulin Human Lispro 0 units 07/11/19 22:32 07/13/19 22:05 Humalog SC 2 unit .BEDTIME SLIDING SC PRN Administration Bedtime Correctional Scale Sodium Chloride 10 ml 07/11/19 21:00 07/14/19 08:03 Flush - Normal Saline IVF Not Given Q12HR CODEY - Exam General Appearance: awake alert Eye: PERRL, anicteric sclera ENT: no oropharyngeal lesions, moist mucosa Neck: supple, no JVD Heart: RRR, no murmur Respiratory: no wheezes, no rales Gastrointestinal: soft, non-tender, non-distended, normal bowel sounds Extremities: no cyanosis Extremities - other findings: left foot in dressing and wound vac, right bka Neurological: cranial nerve grossly intact, no focal deficits Psychiatric: normal affect, A&O x 3 Hosp A/P (1) Gangrene of toe of left foot Code(s): I96 - GANGRENE, NOT ELSEWHERE CLASSIFIED Status: Acute (2) ESRD on hemodialysis Code(s): N18.6 - END STAGE RENAL DISEASE; Z99.2 - DEPENDENCE ON RENAL DIALYSIS Status: Chronic (3) History of below knee amputation Code(s): Z89.519 - ACQUIRED ABSENCE OF UNSPECIFIED LEG BELOW KNEE Status: Chronic Qualifiers: Laterality: right Qualified Code(s): Z89.511 - Acquired absence of right leg below knee (4) Hypertension Code(s): I10 - ESSENTIAL (PRIMARY) HYPERTENSION Status: Chronic Qualifiers: Hypertension type: essential hypertension Qualified Code(s): I10 - Essential (primary) hypertension (5) T2DM (type 2 diabetes mellitus) Status: Chronic Qualifiers: Diabetes mellitus ferry terminal supervisor insulin use: without ferry terminal supervisor use Diabetes mellitus complication status: with kidney complications Diabetes mellitus complication detail: with chronic kidney disease Chronic kidney disease stage : on chronic dialysis Qualified Code(s): E11.22 - Type 2 diabetes mellitus with diabetic chronic kidney disease; N18.6 - End stage renal disease; Z99.2 - Dependence on renal dialysis (6) CAD (coronary artery disease) Code(s): I25.10 - ATHSCL HEART DISEASE OF [place] CORONARY ARTERY W/O ANG PCTRS Status: Chronic Qualifiers: Coronary Disease-Associated Artery/Lesion type: bypass graft [place] vs. transplanted heart: [place] heart Associated angina: without angina Qualified Code(s): I25.810 - Atherosclerosis of coronary artery bypass graft(s) without angina pectoris (7) Diabetes Mellitus Type 2 in Nonobese Code(s): E11.9 - TYPE 2 DIABETES MELLITUS WITHOUT COMPLICATIONS Status: Chronic (8) Dyslipidemia Code(s): E78.5 - HYPERLIPIDEMIA, UNSPECIFIED Status: Chronic (9) ESRD (end stage renal disease) on dialysis Code(s): N18.6 - END STAGE RENAL DISEASE; Z99.2 - DEPENDENCE ON RENAL DIALYSIS Status: Chronic (10) New onset atrial fibrillation Code(s): I48.91 - UNSPECIFIED ATRIAL FIBRILLATION Status: Chronic (11) PVD (peripheral vascular disease) Code(s): I73.9 - PERIPHERAL VASCULAR DISEASE, UNSPECIFIED Status: Chronic - Plan is on vanc HD sliding scale cefipime has been dc'd by surgery has wound vac, needs outpt wound care appt continue norarmin valdes cardizem cd dc plan per gen surgery adv
--- NOTE | 2019-07-14 15:19 | CON ---
DATE OF CONSULTATION: REASON FOR CONSULTATION: Left toe gangrene, status post amputation. HISTORY OF PRESENT ILLNESS: A 58-year-old, whom I had seen in 2016, who has a history of type 2 diabetes, peripheral vascular disease, previous right below-knee amputation for complications of necrotizing infection. In March 2016, he had some issues with his right leg BKA site and that was treated as osteomyelitis and it healed. At this time about in 3 to 4 years later, he comes in with left second toe discoloration. The initial findings included a temperature 98.2, O2 saturation 99, blood pressure 119/71. There was evidence of left second toe gangrene with bone exposure. The patient had amputation of the toe at the MPJ level by Dr. Almeida. The pathology is pending at this time currently denied. The patient denies any headaches. He has poor vision bilaterally due to complications of diabetes and cataracts. Denies any respiratory symptoms. No abdominal pain. He still has some urinary output. No diarrhea or bleeding. No neurological symptoms that are focal. PAST MEDICAL HISTORY: Type 2 diabetes, peripheral vascular disease, right BKA, coronary artery disease with bypass graft surgery, AV fistula in left upper extremity, hemodialysis. SOCIAL HISTORY: Former smoker, quit more than 10 years before. Lives in [place]. Has dialysis in the area. ALLERGIES: NONE. FAMILY HISTORY: Diabetes type 2 and coronary artery disease. CURRENT MEDICATIONS: 1. Norvasc. 2. Coreg. 3. Dextrose. 4. Cardizem. 5. Epoetin. 6. Insulin. 7. Vancomycin. 8. Sliding scale. 9. Tramadol. PHYSICAL EXAMINATION: VITAL SIGNS: Temperature max 99.7, blood pressure 140/60, pulse 76, respirations 16, O2 saturation 98%. SKIN: With the area of gangrene of second toe left foot, areas of onycholysis in the right BKA with intact amputation site. Postop findings showed a fresh red tissue at the base of the MPJ skin site after amputation. The patient has a peripheral IV access and is voiding in the urinal. No lymphadenopathy. HEENT: Ocular movements conjugate. Pupils are equal. He has only a few remaining teeth with marked decay and gum disease. NECK: Supple with jugular vein distention. LUNGS: Symmetric breath sounds. A few crackles on the right side, which was somewhat faint and clear after coughing. HEART: S1 and S2. Regular rate without murmurs. ABDOMEN: Soft, nondistended. No ascites. No bladder distention. No genital abnormalities. I could not feel any popliteal pulses and certainly no dorsalis pedis on the left side. EXTREMITIES: Cap refill is delayed. Warm to touch. He is able to move extremities on command. NEUROLOGIC: He is oriented. Follows commands. Speech is normal. Recollection is normal. LABORATORY DATA: White cell count 9.4 and 8.5, hemoglobin 10.8 and 9.9, platelets 180 with normal differential after admission. Creatinine 7.19, sodium 130. Liver profile normal. Alkaline phosphatase 184. Albumin 3.7, globulin 4.0. Urinalysis was essentially normal except for proteinuria. A random vancomycin level 29 and microbiology with pending results. We have one sample from the toe with gram-negative rods mixed enteric vivek. IMAGING DATA: There is a lower extremity ultrasound with severe multifocal disease in the left lower extremity below the trifurcation. The foot x-ray without findings of significance. IMPRESSION: Type 2 diabetes, peripheral vascular disease, previous right below-knee amputation, now with gangrene of the second toe, status post amputation at the MPJ level in the setting of severe peripheral vascular disease with likely small vessel disease and below trifurcation level disease. DISCUSSION: The main issue here is going to be the vascular disease in the healing potential and to determine that the patient can have oximetry or just plain angiogram to see if he is eligible for revascularization of proximal vessels to improve blood flow/blood supply to the foot and improve the chances for healing. Antimicrobial therapy in this setting would have an ancillary role only and we will follow the culture results and then determine if he is going to need anything hopefully given orally plus-minus vancomycin, sliding scale in dialysis in the outpatient setting. But again the primary issue here is the vascular insufficiency, and if there are no options for improvement of that, then the likelihood of higher level amputation is high. Job ID: [id number]
--- NOTE | 2019-07-14 16:57 | PRG ---
DATE OF SERVICE: 07/14/2019 Mr. Powell doing well. He has a VAC on his left foot. We will view his wound tomorrow. He should be able to go home on oral antibiotics tomorrow. I will view the wound tomorrow with wound care and hopefully he will have his home back acquired. Job ID: [id number]
[2019-07-14] MEDS ORDERED: Amlodipine 10 MG TAB PO SCH (17:00)
--- NOTE | 2019-07-14 17:06 | OP ---
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 PROCEDURE PERFORMED: Amputation of left second toe to the proximal phalanx with the wound left open for healing by secondary intention. FINDINGS: Purulent material sent for culture. Gram-negative rods noted on Gram stain. Good blood supply. Wound dressing applied for VAC application tomorrow. ANESTHESIA: Sedation. DESCRIPTION OF PROCEDURE: The patient was taken to the operating room, where under intravenous sedation, left lower extremity was prepared with ChloraPrep and draped in routine fashion. Incision was made for amputation of the left second toe to the proximal phalanx, and bone was transected with a bone cutter. There was purulent material extending up in the foot. This was cultured. It was irrigated. The proximal phalanx was resected proximally with rongeurs back to healthy bone. Wound was irrigated. Hemostasis was noted. Cautery was required. Connective tissue and tendon debris were debrided. A gauze dressing was applied until wound VAC can be applied tomorrow. The patient tolerated the procedure well. Job ID: [id number]
[2019-07-14] MEDS: HumaLOG 300 UNITS/3 ML VIAL SC PRN (17:07)
[2019-07-15 05:24] LABS: #Basophils 0.1 thou/uL (0.0-0.2); #Eosinphils 0.5 thou/uL (0.0-0.7); #Monocytes 0.7 thou/uL (0.11-0.59); #Neutrophils 5.2 thou/uL (1.40-6.50); %Basophils 0.8 % (0.0-1.0); %Eosinophils 6.1 % (0.0-10.0); %Lymphocytes 23.8 % (21.0-51.0); %Monocytes 7.9 % (0.0-10.0); %Neutrophils 61.4 % (42.0-75.0); Hemoglobin 10.3 g/dL (14.0-18.0); Mean Corpuscular Hemoglobin 29.8 pg (27.0-31.0); Mean Corpuscular Volume 90.5 fL (78.0-98.0); Mean Platelet Volume 9.4 fL (7.4-10.4); Platelet Count 211 thou/uL (130-400); RBC Distribution Width 12.7 % (11.5-14.5); Red Blood Cell (RBC) Count 3.46 mill/uL (4.70-6.10); White Blood Cell (WBC) Count 8.4 thou/uL (4.8-10.8)
[2019-07-15 05:46] LABS: Anion Gap 15 mmol/L (10-20); BUN (Urea Nitrogen) 21 mg/dL (8.4-25.7); Calc. Creatinine Clearance 15 mL/min (70-130); Calcium 8.6 mg/dL (7.8-10.44); Carbon Dioxide 30 mmol/L (22-29); Chloride 96 mmol/L (98-107); Estimated GFR-MDRD 12; Glucose 264 mg/dL (70-105); Potassium 4.8 mmol/L (3.5-5.1); Sodium 136 mmol/L (136-145)
[2019-07-15] MEDS: HumaLOG 300 UNITS/3 ML VIAL SC PRN ×3 (05:51→16:48)
[2019-07-15] MEDS: Carvedilol 3.125 MG TAB PO SCH ×2 (08:52→16:47)
[2019-07-15] MEDS: Amlodipine 10 MG TAB PO SCH (08:52)
[2019-07-15] MEDS ORDERED: traMADol HCl 50 MG TAB PO PRN (10:27)
[2019-07-15 15:31] VITALS: BP 111/49; TEMP 98
--- NOTE | 2019-07-15 18:47 | DIS ---
DATE OF ADMISSION: 07/11/2019 DATE OF DISCHARGE: 07/15/2019 DISCHARGE DISPOSITION: To home with wound care. PRIMARY DISCHARGE DIAGNOSES: Left second toe gangrene status post amputation of left second toe with wound open for secondary intention healing. SECONDARY DISCHARGE DIAGNOSES: End-stage renal disease on hemodialysis, diabetes mellitus type 2, history of right below-knee amputation, hypertension, and peripheral vascular disease. PROCEDURES DONE DURING HOSPITALIZATION: The patient has had amputation of left second toe done by Dr. Almeida. Postprocedure, the wound is in a wound VAC. Left lower extremity arterial Doppler done showed [id number] multifocal disease in the left lower arterial system, most notable disease is suggested below the level of popliteal artery. Left foot three-view x-ray done showed no evidence of osteomyelitis. Wound cultures are growing Prevotella corporis. Blood cultures x2, no growth. White count of 8.4, H and H 10 and 31, and platelet count 211. Sedimentation rate was 78. BUN 21, and creatinine 5.1. CRP 8.0. DISCHARGE MEDICATIONS: 1. Vancomycin. 2. Sliding scale with hemodialysis for 2 weeks. 3. Levaquin 250 mg p.o. daily for 2 weeks. 4. Ultram 50 mg p.o. q.6 hourly p.r.n. 5. Ferrous sulfate 325 mg p.o. daily. 6. Cardizem CD 120 mg p.o. daily. 7. Coreg 3.125 mg p.o. twice daily. 8. Aspirin 325 mg p.o. daily. 9. Norvasc 10 mg p.o. daily. 10. [place] p.r.n. for pain. 11. Atorvastatin 40 mg p.o. daily. 12. Amiodarone 200 mg p.o. daily. ALLERGIES: NO KNOWN DRUG ALLERGIES. INPATIENT CONSULT: Dr. Caceres for Nephrology, Dr. Almeida for General Surgery, and Dr. Strickland for Infectious Disease. DISCHARGE PLAN: The patient to follow up with Dr. Almeida as advised. He has outpatient wound care appointment on Thursday. He needs to follow up with Dr. Schilling, his primary care physician in 1 week. BRIEF COURSE DURING HOSPITALIZATION: The patient initially got admitted on the with complaints of left second toe swelling, edema, and discoloration. The patient was found to have had left second toe gangrene. He has had consultation with Dr. Almeida. The patient has had amputation of left second toe done and the wound was left in wound VAC. He was on IV antibiotics and has been transitioned to vancomycin with hemodialysis and Levaquin orally for a total duration of 2 weeks. He has had consultation with Dr. Caceres for hemodialysis/Nephrology and Dr. Strickland for Infectious Disease. He is hemodynamically stable. Prior to discharge, he is eating well. Case Management consultation was requested for help with discharge planning including wound VAC, outpatient wound care appointments, and vancomycin with dialysis, which has been arranged now. Please note I have seen and examined the patient on the day of discharge. Job ID: [id number] [id number]
== END 2019-07-15 18:55 | disposition home or self-care (01) | DRG 255 ==
LOC: ERS 13:30 → SURG A 22:01
PROVIDERS: ADMIT Internal Medicine; ATTEND Internal Medicine
PROC: 5A1D70Z Performance of Urinary Filtration, Intermittent, Less than 6 Hours Per Day (ICD-10-PCS; principal; 2019-07-12)
PROC: 0Y6S0Z1 Detachment at Left 2nd Toe, High, Open Approach (ICD-10-PCS; 2019-07-12)
DX: E11.52 Type 2 diabetes mellitus with diabetic peripheral angiopathy with gangrene (principal); N18.6 End stage renal disease; I96 Gangrene, not elsewhere classified; M86.8X8 Other osteomyelitis, other site; E11.69 Type 2 diabetes mellitus with other specified complication; E11.22 Type 2 diabetes mellitus with diabetic chronic kidney disease; I48.91 Unspecified atrial fibrillation; L03.032 Cellulitis of left toe; E78.5 Hyperlipidemia, unspecified; E11.21 Type 2 diabetes mellitus with diabetic nephropathy; D64.9 Anemia, unspecified; I25.10 Atherosclerotic heart disease of native coronary artery without angina pectoris; Z95.1 Presence of aortocoronary bypass graft; Z89.511 Acquired absence of right leg below knee; Z88.1 Allergy status to other antibiotic agents; Z87.891 Personal history of nicotine dependence; Z99.2 Dependence on renal dialysis; Z79.4 Long term (current) use of insulin
CPT/HCPCS: 36415; 36416; 80048; 80053; 80202; 81001; 83605; 85007; 85025; 85027; 85652; 86140; 87040; 87070; 87076; 87205; 88305; 88311; 90935; 93923; 96365; G0257; J0360; J0692; J2001; J2704; J3010; J3370; J7050; Q5105

== ENCOUNTER 2021-05-23 16:45 | Outpatient (CLI) | payer MEDICARE ==
[2021-05-24 15:33] LABS: SARS-CoV-2 PCR by NAA Not Detected (NotDetected)
== END 2021-05-23 16:46 | disposition home or self-care (01) ==
LOC: LABBT 16:45
PROVIDERS: ATTEND Thoracic Surgery (Cardiothoracic Vascular Surgery)
DX: Z01.812 Encounter for preprocedural laboratory examination (principal); Z20.822 Contact with and (suspected) exposure to COVID-19
CPT/HCPCS: U0003; U0005

== ENCOUNTER 2021-05-23 17:45 | Inpatient (IN) | payer MEDICARE ==
[2021-05-27] MEDS ORDERED: Dexamethasone 4 mg/ml Vial ONE (06:27)
[2021-05-27] MEDS ORDERED: Protamine Sulfate 50 MG/5 ML VIAL ONE (06:27)
[2021-05-27] MEDS ORDERED: Heparin 5,000 UNITS/ML VIAL ONE (06:27)
[2021-05-27] MEDS ORDERED: Bupivacaine PF 0.5% 30 ML VIAL ONE (06:27)
[2021-05-27] MEDS ORDERED: EPINEPHrine 1 MG/ML AMP ONE (06:27)
[2021-05-27] MEDS ORDERED: Fentanyl 100 MCG/2 ML VIAL ONE ×2 (07:09→12:24)
[2021-05-27] MEDS ORDERED: Midazolam HCl 2 mg/2 ml Vial ONE (07:09)
[2021-05-27 07:23] LABS: Mean Corpuscular Hemoglobin 32.3 pg (27.0-31.0); Mean Corpuscular Volume 95.2 fL (78.0-98.0); Mean Platelet Volume 11.7 fL (7.4-10.4); Platelet Count 75 thou/uL (130-400); RBC Distribution Width 15.3 % (11.5-14.5); Red Blood Cell (RBC) Count 3.71 mill/uL (4.70-6.10); White Blood Cell (WBC) Count 6.2 thou/uL (4.8-10.8)
[2021-05-27] MEDS ORDERED: Labetalol HCl 100 MG/20 ML VIAL ONE (07:23)
[2021-05-27] MEDS ORDERED: Lidocaine 1% PF 5 ML VIAL ONE (07:23)
[2021-05-27] MEDS ORDERED: Ondansetron PF 4 MG/2 ML Vial ONE (07:23)
[2021-05-27] MEDS ORDERED: Rocuronium Bromide 10 MG/ML (10ML VIAL) ONE (07:23)
[2021-05-27] MEDS ORDERED: Dexamethasone 20 MG/5 ML VIAL ONE (07:23)
[2021-05-27] MEDS ORDERED: PROPOFOL 200 MG/20 ML VIAL ONE (07:23)
[2021-05-27] MEDS ORDERED: Glycopyrrolate 0.2 MG/ML 5 ML SYRINGE ONE (07:23)
[2021-05-27] MEDS ORDERED: PHENYLEPHRINE-NS 100 MCG/ML 10 ML SYRINGE ONE (07:23)
[2021-05-27 07:29] LABS: Anion Gap 18 mmol/L (10-20); BUN (Urea Nitrogen) 60 mg/dL (8.4-25.7); Calc. Creatinine Clearance 13 mL/min (70-130); Calcium 9.4 mg/dL (7.8-10.44); Carbon Dioxide 29 mmol/L (22-29); Chloride 92 mmol/L (98-107); Glucose 370 mg/dL (70-105); Potassium 5.3 mmol/L (3.5-5.1); Sodium 134 mmol/L (136-145)
[2021-05-27] MEDS ORDERED: Acetaminophen 325 MG TAB PO PRN (09:23)
[2021-05-27] MEDS ORDERED: niCARdipine 25 MG in Sodium Chloride 0.9% 250 ML 250 ML IVPB PRN (09:23)
[2021-05-27] MEDS ORDERED: Nitroglycerin 50 MG/250 ML BOT 250 ML IVPB PRN (09:23)
[2021-05-27] MEDS ORDERED: Phenylephrine 40 MG in Sodium Chloride 0.9% 250 ML 246 ML IVPB PRN (09:23)
[2021-05-27] MEDS ORDERED: Fentanyl 100 MCG/2 ML VIAL SLOW IVP PRN (09:23)
[2021-05-27] MEDS ORDERED: Ondansetron PF 4 MG/2 ML Vial IVP PRN (09:23)
[2021-05-27] MEDS ORDERED: hydrALAZINE 20 MG/ML VIAL ONE (09:30)
[2021-05-27] MEDS ORDERED: Atorvastatin Calcium 40 MG TAB PO SCH (11:15)
[2021-05-27] MEDS ORDERED: Cholecalciferol 1,000 UNITS (25 MCG) TAB PO SCH (11:30)
[2021-05-27] MEDS ORDERED: Levothyroxine Sodium 50 MCG TAB PO SCH (11:30)
[2021-05-27] MEDS ORDERED: Sodium Chloride 0.9% 10 ML ONE (11:37)
[2021-05-27] MEDS: hydrALAZINE 20 MG/ML VIAL SLOW IVP PRN ×2 (11:40→22:42)
[2021-05-27 11:41] VITALS: BP 144/56
[2021-05-27] MEDS: CEFAZOLIN 2 GM, Admixture Fee 1 EACH in Sodium Chloride 0.9% 100 ML IVPB SCH ×2 (14:45→22:41)
[2021-05-27] MEDS: Clindamycin 150 MG CAP PO SCH ×2 (14:47→18:15)
[2021-05-27] MEDS: Sodium Chloride 0.9% 1,000 ML IV SCH ×2 (14:54→19:00)
[2021-05-27 15:19] VITALS: BMI 22.1
[2021-05-27] MEDS: Carvedilol 3.125 MG TAB PO SCH (18:14)
[2021-05-28] MEDS: Clindamycin 150 MG CAP PO SCH ×3 (00:11→11:03)
[2021-05-28] MEDS: Sodium Chloride 0.9% 1,000 ML IV SCH (05:23)
[2021-05-28] MEDS ORDERED: Levothyroxine Sodium 50 MCG TAB PO SCH (06:00)
[2021-05-28] MEDS ORDERED: CEFAZOLIN 2 GM, Admixture Fee 1 EACH in Sodium Chloride 0.9% 100 ML IVPB SCH (07:00)
[2021-05-28] MEDS ORDERED: Ferrous Sulfate 325 MG TAB PO SCH (08:00)
[2021-05-28 08:34] VITALS: TEMP 98
[2021-05-28] MEDS ORDERED: Atorvastatin Calcium 40 MG TAB PO SCH (09:00)
[2021-05-28] MEDS ORDERED: FLU VACC QS2021-22(6MOS UP)/PF 60 MCG/0.5 ML SYRINGE IM ONE (09:00)
[2021-05-28] MEDS ORDERED: Cholecalciferol 1,000 UNITS (25 MCG) TAB PO SCH (09:00)
[2021-05-28] MEDS ORDERED: Apixaban 5 MG TAB PO SCH (09:00)
[2021-05-28] MEDS ORDERED: Losartan 25 MG TAB PO SCH (09:00)
[2021-05-28] MEDS: Carvedilol 3.125 MG TAB PO SCH (09:01)
[2021-05-28] MEDS: CEFAZOLIN 2 GM, Admixture Fee 1 EACH in Sodium Chloride 0.9% 100 ML IVPB SCH (11:03)
[2021-05-28] MEDS ORDERED: Calcium Carbonate 500 MG ChewTAB PO SCH (21:00)
[2021-05-29] MEDS ORDERED: Folic Acid/Vit B Comp W-C PO SCH (09:00)
== END 2021-05-28 16:45 | disposition home or self-care (01) | DRG 37 ==
LOC: SURG A 05-27 06:00 → CCU 05-27 12:34
PROVIDERS: ADMIT Thoracic Surgery (Cardiothoracic Vascular Surgery); ATTEND Thoracic Surgery (Cardiothoracic Vascular Surgery)
PROC: 03CH0ZZ Extirpation of Matter from Right Common Carotid Artery, Open Approach (ICD-10-PCS; principal; 2021-05-27)
PROC: 03CK0ZZ Extirpation of Matter from Right Internal Carotid Artery, Open Approach (ICD-10-PCS; 2021-05-27)
PROC: 03CM0ZZ Extirpation of Matter from Right External Carotid Artery, Open Approach (ICD-10-PCS; 2021-05-27)
PROC: 03UH0KZ Supplement Right Common Carotid Artery with Nonautologous Tissue Substitute, Open Approach (ICD-10-PCS; 2021-05-27)
PROC: 03UK0KZ Supplement Right Internal Carotid Artery with Nonautologous Tissue Substitute, Open Approach (ICD-10-PCS; 2021-05-27)
PROC: 03UM0KZ Supplement Right External Carotid Artery with Nonautologous Tissue Substitute, Open Approach (ICD-10-PCS; 2021-05-27)
PROC: 5A1D70Z Performance of Urinary Filtration, Intermittent, Less than 6 Hours Per Day (ICD-10-PCS; 2021-05-28)
DX: I65.21 Occlusion and stenosis of right carotid artery (principal); N18.6 End stage renal disease; I12.0 Hypertensive chronic kidney disease with stage 5 chronic kidney disease or end stage renal disease; I42.9 Cardiomyopathy, unspecified; I25.10 Atherosclerotic heart disease of native coronary artery without angina pectoris; E78.5 Hyperlipidemia, unspecified; E11.51 Type 2 diabetes mellitus with diabetic peripheral angiopathy without gangrene; E03.9 Hypothyroidism, unspecified; E11.22 Type 2 diabetes mellitus with diabetic chronic kidney disease; Z99.2 Dependence on renal dialysis; Z95.1 Presence of aortocoronary bypass graft; Z86.73 Personal history of transient ischemic attack (TIA), and cerebral infarction without residual deficits; Z87.891 Personal history of nicotine dependence; Z79.899 Other long term (current) drug therapy; Z79.890 Hormone replacement therapy; Z79.01 Long term (current) use of anticoagulants
CPT/HCPCS: 36416; 80048; 85027; 90935; 94640; G0257; J0171; J0360; J0690; J1100; J1642; J1644; J2250; J2405; J2704; J2720; J3010; J3490; J7050; J7620; S0020

== ENCOUNTER 2021-08-17 08:55 | Inpatient (IN) | payer MEDICARE ==
[2021-08-17 09:35] LABS: Hemoglobin 11.4 g/dL (14.0-18.0); Mean Corpuscular HGB CONC 33.6 g/dL (32.0-36.0); Mean Corpuscular Hemoglobin 32.1 pg (27.0-31.0); Mean Corpuscular Volume 95.7 fL (78.0-98.0); RBC Distribution Width 13.8 % (11.5-14.5); Red Blood Cell (RBC) Count 3.55 mill/uL (4.70-6.10)
[2021-08-17 09:53] LABS: Band 5 % (5-11); Lymphocytes 4 % (21-51); MDiff Complete? YES; Mean Platelet Volume 10.1 fL (7.4-10.4); Monocytes 3 % (0-10); Neutrophil 88 % (42-75); Platelet Count 133 thou/uL (130-400); Platelet Morphology Comment Appears Adequate
[2021-08-17 09:54] LABS: ALT (SGPT) 26 U/L (8-55); AST (SGOT) 27 U/L (5-34); Albumin 3.4 g/dL (3.5-5.0); Alkaline Phosphatase 461 U/L (40-110); Anion Gap 21 mmol/L (10-20); BUN (Urea Nitrogen) 67 mg/dL (8.4-25.7); Bilirubin, Total 1.4 mg/dL (0.2-1.2); Calc. Creatinine Clearance 0 mL/min (70-130); Calcium 8.6 mg/dL (7.8-10.44); Carbon Dioxide 23 mmol/L (22-29); Chloride 92 mmol/L (98-107); Globulin 3.9 g/dL (2.4-3.5); Glucose 410 mg/dL (70-105); Potassium 5.4 mmol/L (3.5-5.1); Protein, Total 7.3 g/dL (6.0-8.3); Sodium 131 mmol/L (136-145)
[2021-08-17] MEDS ORDERED: Acetaminophen 500 MG TAB ONE (10:02)
[2021-08-17] MEDS ORDERED: Vancomycin 1 GM/200 ML BAG ONE (10:04)
[2021-08-17 10:10] LABS: CK (CPK) 60 U/L (30-200)
[2021-08-17 10:15] LABS: CKMB 1.2 ng/mL (0-6.6)
[2021-08-17] MEDS ORDERED: Piperacillin/Tazobactam 4.5 GM VIAL ONE (10:18)
[2021-08-17] MEDS ORDERED: Dextrose 5% in Water 1,000 ML IV PRN (11:56)
[2021-08-17 12:30] LABS: Hemoglobin A1c 10.8 % (4.0-6.0)
[2021-08-17 12:56] LABS: Troponin I 0.053 ng/mL (< 0.028)
[2021-08-17 14:14] LABS: Troponin I 0.061 ng/mL (< 0.028)
[2021-08-17] MEDS ORDERED: Insulin Regular 300 UNITS/3 ML VIAL SC SCH (14:15)
[2021-08-17 17:21] LABS: Hep A IgM AB Non-Reactive (NonReactive); Hep A IgM S/CO 0.44 S/CO (0-0.79); Hep B Surf Ag Non-Reactive S/CO (NonReactive)
[2021-08-17 17:22] LABS: HBCM Index 0.05 S/CO (0-0.79); HBSAg Index 0.26 S/CO (0-0.99); Hep C IgG Ab Non-Reactive (NonReactive); Hep C Index 0.08 S/CO (0-0.79); Hepatitis B Core IgM Abs Non-Reactive (NonReactive)
[2021-08-17] MEDS: cefTRIAXone\\ROCEPHIN 1 GM in Sodium Chloride 0.9% 100 ML IVPB SCH (20:23)
[2021-08-17] MEDS: Doxycycline 100 MG CAP PO SCH (20:23)
[2021-08-17] MEDS: HumaLOG 300 UNITS/3 ML VIAL SC PRN (20:34)
[2021-08-17] MEDS ORDERED: Lantus 1000 UNITS/10 ML VIAL SC SCH (21:00)
[2021-08-17] MEDS ORDERED: Carvedilol 3.125 MG TAB PO SCH (21:30)
[2021-08-17 21:31] LABS: SARS-CoV-2 NAA Rapid Test DETECTED (NotDetected)
[2021-08-18] MEDS: Acetaminophen 325 MG TAB PO PRN (01:11)
[2021-08-18 03:41] LABS: Actual Bicarbonate (HCO3a) 23.7 mEq/L (22-28); Analyzer IN Cardio ER; Base Excess (BEa) 0.9 mEq/L (-2.0 to +3.0); CO2 Tension 31.7 mmHg (35.0-45.0); Calcium, Ionized (arterial) 1.04 mmol/L (1.12-1.30); Carboxyhemoglobin (COHb) 0.3 gm% (0.0-3.0); Hemoglobin (Hb) 10.9 g/dL (14.0-18.0); O2 Tension (PaO2), arterial 163.7 mmHg (80.0-100.0); Potassium - ABG Lab 4.65 mmol/L (3.70-5.30); pH, Arterial 7.49 (7.35-7.45)
[2021-08-18 03:43] LABS: Puncture Site LBA
[2021-08-18 05:41] LABS: Band 11 % (5-11); Hemoglobin 11.3 g/dL (14.0-18.0); Lymphocytes 3 % (21-51); MDiff Complete? YES; Mean Corpuscular HGB CONC 32.5 g/dL (32.0-36.0); Mean Corpuscular Hemoglobin 31.7 pg (27.0-31.0); Mean Corpuscular Volume 97.6 fL (78.0-98.0); Mean Platelet Volume 9.7 fL (7.4-10.4); Monocytes 7 % (0-10); Neutrophil 79 % (42-75); Platelet Count 140 thou/uL (130-400); Platelet Morphology Comment Appears Adequate; RBC Distribution Width 13.9 % (11.5-14.5); Red Blood Cell (RBC) Count 3.55 mill/uL (4.70-6.10)
[2021-08-18] MEDS: Dextrose 50% Abboject 50 ML SYRINGE SLOW IVP PRN (05:47)
[2021-08-18 05:49] LABS: ALT (SGPT) 20 U/L (8-55); AST (SGOT) 19 U/L (5-34); Albumin 3.1 g/dL (3.5-5.0); Alkaline Phosphatase 368 U/L (40-110); Anion Gap 21 mmol/L (10-20); BUN (Urea Nitrogen) 73 mg/dL (8.4-25.7); Bilirubin, Total 1.4 mg/dL (0.2-1.2); Calc. Creatinine Clearance 8 mL/min (70-130); Calcium 8.6 mg/dL (7.8-10.44); Carbon Dioxide 23 mmol/L (22-29); Chloride 93 mmol/L (98-107); Globulin 3.7 g/dL (2.4-3.5); Potassium 4.8 mmol/L (3.5-5.1); Protein, Total 6.8 g/dL (6.0-8.3); Sodium 132 mmol/L (136-145)
[2021-08-18 05:58] LABS: Glucose 58 mg/dL (70-105)
[2021-08-18] MEDS: Levothyroxine Sodium 50 MCG TAB PO SCH (06:04)
[2021-08-18] MEDS ORDERED: Iopamidol 370 76% 100 ML VIAL ONE (09:09)
[2021-08-18] MEDS ORDERED: Lantus 1000 UNITS/10 ML VIAL SC SCH ×2 (09:21→23:00)
[2021-08-18] MEDS ORDERED: Magnevist 469MG/ML 20 ML VIAL ONE (09:23)
[2021-08-18] MEDS: Ferrous Sulfate 325 MG TAB PO SCH ×2 (12:28→18:21)
[2021-08-18] MEDS: Losartan 25 MG TAB PO SCH (12:28)
[2021-08-18] MEDS: Atorvastatin Calcium 40 MG TAB PO SCH ×2 (12:28→18:22)
[2021-08-18] MEDS: Carvedilol 3.125 MG TAB PO SCH ×3 (12:28→18:21)
[2021-08-18] MEDS: Folic Acid/Vit B Comp W-C PO SCH ×2 (12:28→18:22)
[2021-08-18] MEDS: Calcium Carbonate 500 MG ChewTAB PO SCH ×4 (12:28→22:55)
[2021-08-18] MEDS: Apixaban 2.5 MG TAB PO SCH ×2 (12:28→21:32)
[2021-08-18] MEDS: Cholecalciferol 1,000 UNITS (25 MCG) TAB PO SCH (12:28)
[2021-08-18] MEDS: Doxycycline 100 MG CAP PO SCH ×2 (12:28→21:32)
[2021-08-18] MEDS: Acetaminophen 500 MG TAB PO SCH ×2 (12:29→18:24)
[2021-08-18] MEDS: cefTRIAXone\\ROCEPHIN 1 GM in Sodium Chloride 0.9% 100 ML IVPB SCH (22:56)
[2021-08-19] MEDS: Levothyroxine Sodium 50 MCG TAB PO SCH (04:59)
[2021-08-19 05:04] LABS: ALT (SGPT) 19 U/L (8-55); AST (SGOT) 25 U/L (5-34); Albumin 2.7 g/dL (3.5-5.0); Alkaline Phosphatase 325 U/L (40-110); Anion Gap 16 mmol/L (10-20); BUN (Urea Nitrogen) 31 mg/dL (8.4-25.7); Bilirubin, Total 1.2 mg/dL (0.2-1.2); Calc. Creatinine Clearance 15 mL/min (70-130); Calcium 8.2 mg/dL (7.8-10.44); Carbon Dioxide 28 mmol/L (22-29); Chloride 94 mmol/L (98-107); Globulin 3.4 g/dL (2.4-3.5); Glucose 73 mg/dL (70-105); Potassium 4.1 mmol/L (3.5-5.1); Protein, Total 6.1 g/dL (6.0-8.3); Sodium 134 mmol/L (136-145)
[2021-08-19 05:21] LABS: Band 14 % (5-11); Hypochromia SLIGHT = 6-15 cells (100X) (0-5/hpf); Lymphocytes 7 % (21-51); MDiff Complete? YES; Mean Corpuscular HGB CONC 32.8 g/dL (32.0-36.0); Mean Corpuscular Volume 97.5 fL (78.0-98.0); Mean Platelet Volume 9.8 fL (7.4-10.4); Monocytes 5 % (0-10); Neutrophil 74 % (42-75); Platelet Count 137 thou/uL (130-400); Platelet Morphology Comment Appears Adequate; RBC Distribution Width 13.8 % (11.5-14.5); Red Blood Cell (RBC) Count 3.13 mill/uL (4.70-6.10)
[2021-08-19] MEDS: Carvedilol 3.125 MG TAB PO SCH ×2 (09:36→17:09)
[2021-08-19] MEDS: Ferrous Sulfate 325 MG TAB PO SCH (09:37)
[2021-08-19] MEDS: Cholecalciferol 1,000 UNITS (25 MCG) TAB PO SCH (09:37)
[2021-08-19] MEDS: Calcium Carbonate 500 MG ChewTAB PO SCH ×3 (09:37→21:20)
[2021-08-19] MEDS: Apixaban 2.5 MG TAB PO SCH ×2 (09:37→21:21)
[2021-08-19] MEDS: Atorvastatin Calcium 40 MG TAB PO SCH (09:37)
[2021-08-19] MEDS: Dexamethasone 4 mg/ml Vial SLOW IVP SCH (09:38)
[2021-08-19] MEDS: Acetaminophen 325 MG TAB PO PRN (09:38)
[2021-08-19] MEDS: Losartan 25 MG TAB PO SCH (09:38)
[2021-08-19] MEDS: Folic Acid/Vit B Comp W-C PO SCH (09:38)
[2021-08-19] MEDS: Doxycycline 100 MG CAP PO SCH (09:38)
[2021-08-19] MEDS ORDERED: Vancomycin Sliding Scale 1 EACH FS ONE (10:30)
[2021-08-19] MEDS ORDERED: Vancomycin 1 GM in Premix Bag 1 BAG IVPB SCH (10:30)
[2021-08-19] MEDS ORDERED: HOLD VANCOMYCIN FOR LEVEL >20 FS SCH (10:30)
[2021-08-19] MEDS ORDERED: Vancomycin HCl 250 MG in Sodium Chloride 0.9% 100 ML IVPB SCH (10:30)
[2021-08-19] MEDS ORDERED: Vancomycin HCl 750 MG in Sodium Chloride 0.9% 250 ML 250 ML IVPB SCH (10:30)
[2021-08-19] MEDS ORDERED: Vancomycin HCl 500 MG in Sodium Chloride 0.9% 100 ML IVPB SCH (10:30)
[2021-08-19] MEDS ORDERED: Cefepime 2 GM in Sodium Chloride 0.9% 100 ML IVPB SCH (11:00)
[2021-08-19] MEDS: Lantus 1000 UNITS/10 ML VIAL SC SCH (21:20)
[2021-08-19] MEDS: HumaLOG 300 UNITS/3 ML VIAL SC PRN (21:21)
[2021-08-20 05:09] LABS: ALT (SGPT) 23 U/L (8-55); AST (SGOT) 29 U/L (5-34); Albumin 2.6 g/dL (3.5-5.0); Alkaline Phosphatase 345 U/L (40-110); Anion Gap 18 mmol/L (10-20); BUN (Urea Nitrogen) 46 mg/dL (8.4-25.7); Bilirubin, Total 1.1 mg/dL (0.2-1.2); Calc. Creatinine Clearance 12 mL/min (70-130); Calcium 7.9 mg/dL (7.8-10.44); Carbon Dioxide 26 mmol/L (22-29); Chloride 90 mmol/L (98-107); Globulin 3.4 g/dL (2.4-3.5); Glucose 281 mg/dL (70-105); Potassium 4.6 mmol/L (3.5-5.1); Sodium 129 mmol/L (136-145)
[2021-08-20 05:11] LABS: Band 6 % (5-11); Hemoglobin 9.9 g/dL (14.0-18.0); Lymphocytes 7 % (21-51); MDiff Complete? YES; Mean Corpuscular HGB CONC 32.3 g/dL (32.0-36.0); Mean Corpuscular Hemoglobin 31.4 pg (27.0-31.0); Mean Corpuscular Volume 97.2 fL (78.0-98.0); Mean Platelet Volume 10.1 fL (7.4-10.4); Monocytes 8 % (0-10); Neutrophil 79 % (42-75); Platelet Count 135 thou/uL (130-400); Platelet Morphology Comment Appears Adequate; RBC Distribution Width 13.8 % (11.5-14.5); Red Blood Cell (RBC) Count 3.16 mill/uL (4.70-6.10); White Blood Cell (WBC) Count 15.6 thou/uL (4.8-10.8)
[2021-08-20] MEDS: Levothyroxine Sodium 50 MCG TAB PO SCH (05:52)
[2021-08-20] MEDS: HumaLOG 300 UNITS/3 ML VIAL SC PRN ×2 (06:04→12:26)
[2021-08-20] MEDS ORDERED: Epoetin (ESRD) 20,000 UNITS/ML SC SCH (09:00)
[2021-08-20] MEDS ORDERED: Prevnar 13-Val Conj/PF 0.5 ML SYRINGE IM ONE (09:00)
[2021-08-20] MEDS ORDERED: hydrOXYzine 10 MG TAB PO PRN (09:18)
[2021-08-20] MEDS: Calcium Carbonate 500 MG ChewTAB PO SCH ×3 (10:07→20:50)
[2021-08-20] MEDS: Atorvastatin Calcium 40 MG TAB PO SCH (10:07)
[2021-08-20] MEDS: Folic Acid/Vit B Comp W-C PO SCH (10:07)
[2021-08-20] MEDS: Cholecalciferol 1,000 UNITS (25 MCG) TAB PO SCH (10:07)
[2021-08-20] MEDS: Dexamethasone 4 mg/ml Vial SLOW IVP SCH (10:08)
[2021-08-20] MEDS: Ferrous Sulfate 325 MG TAB PO SCH (10:08)
[2021-08-20] MEDS: Losartan 25 MG TAB PO SCH (10:09)
[2021-08-20] MEDS: Carvedilol 3.125 MG TAB PO SCH ×2 (10:09→17:18)
[2021-08-20] MEDS ORDERED: EPOETIN ALFA-EPBX (ESRD) 4,000 UNIT/ML VIAL SC SCH (12:00)
[2021-08-20] MEDS: Cefepime 1 GM in Sodium Chloride 0.9% 100 ML IVPB SCH (12:26)
[2021-08-20] MEDS ORDERED: EPOETIN ALFA-EPBX (ESRD) 10,000 UNIT/ML VIAL SC SCH (12:30)
[2021-08-20 13:31] VITALS: BMI 22.4
[2021-08-20] MEDS: Apixaban 2.5 MG TAB PO SCH (17:18)
[2021-08-20] MEDS: Lantus 1000 UNITS/10 ML VIAL SC SCH (20:50)
[2021-08-21 06:28] LABS: ALT (SGPT) 20 U/L (8-55); AST (SGOT) 25 U/L (5-34); Albumin 2.7 g/dL (3.5-5.0); Alkaline Phosphatase 362 U/L (40-110); Anion Gap 16 mmol/L (10-20); BUN (Urea Nitrogen) 30 mg/dL (8.4-25.7); Bilirubin, Total 0.9 mg/dL (0.2-1.2); Calc. Creatinine Clearance 21 mL/min (70-130); Calcium 8.1 mg/dL (7.8-10.44); Carbon Dioxide 26 mmol/L (22-29); Chloride 92 mmol/L (98-107); Globulin 3.5 g/dL (2.4-3.5); Glucose 175 mg/dL (70-105); Potassium 3.9 mmol/L (3.5-5.1); Protein, Total 6.2 g/dL (6.0-8.3); Sodium 130 mmol/L (136-145)
[2021-08-21] MEDS: Levothyroxine Sodium 50 MCG TAB PO SCH (06:50)
[2021-08-21] MEDS: Dexamethasone 4 mg/ml Vial SLOW IVP SCH (08:28)
[2021-08-21] MEDS: Losartan 25 MG TAB PO SCH (08:29)
[2021-08-21] MEDS: Calcium Carbonate 500 MG ChewTAB PO SCH ×3 (08:29→21:39)
[2021-08-21] MEDS: Ferrous Sulfate 325 MG TAB PO SCH (08:29)
[2021-08-21] MEDS: Atorvastatin Calcium 40 MG TAB PO SCH (08:29)
[2021-08-21] MEDS: Folic Acid/Vit B Comp W-C PO SCH (08:30)
[2021-08-21] MEDS: Cholecalciferol 1,000 UNITS (25 MCG) TAB PO SCH (08:30)
[2021-08-21] MEDS: Carvedilol 3.125 MG TAB PO SCH ×2 (08:30→15:29)
[2021-08-21 09:42] LABS: Band 11 % (5-11); Hemoglobin 10.5 g/dL (14.0-18.0); Lymphocytes 7 % (21-51); MDiff Complete? YES; Mean Corpuscular HGB CONC 32.1 g/dL (32.0-36.0); Mean Corpuscular Hemoglobin 31.5 pg (27.0-31.0); Mean Corpuscular Volume 98.1 fL (78.0-98.0); Mean Platelet Volume 9.7 fL (7.4-10.4); Monocytes 5 % (0-10); Neutrophil 77 % (42-75); Platelet Count 140 thou/uL (130-400); Platelet Morphology Comment Appears Adequate; Polychromasia SLIGHT = 2-3 cells (100X) (0-2/hpf); RBC Distribution Width 13.8 % (11.5-14.5); Red Blood Cell (RBC) Count 3.34 mill/uL (4.70-6.10); White Blood Cell (WBC) Count 16.6 thou/uL (4.8-10.8)
[2021-08-21] MEDS ORDERED: Vancomycin HCl 750 MG in Sodium Chloride 0.9% 250 ML 250 ML IVPB SCH (11:30)
[2021-08-21] MEDS: Cefepime 1 GM in Sodium Chloride 0.9% 100 ML IVPB SCH (12:02)
[2021-08-21] MEDS: Lantus 1000 UNITS/10 ML VIAL SC SCH (21:39)
[2021-08-22 05:33] LABS: Band 11 % (5-11); Hemoglobin 10.6 g/dL (14.0-18.0); Lymphocytes 7 % (21-51); MDiff Complete? YES; Mean Corpuscular HGB CONC 32.1 g/dL (32.0-36.0); Mean Corpuscular Hemoglobin 31.3 pg (27.0-31.0); Mean Corpuscular Volume 97.7 fL (78.0-98.0); Mean Platelet Volume 9.7 fL (7.4-10.4); Monocytes 1 % (0-10); Neutrophil 81 % (42-75); Platelet Count 157 thou/uL (130-400); Platelet Morphology Comment Appears Adequate; RBC Distribution Width 13.8 % (11.5-14.5); Red Blood Cell (RBC) Count 3.38 mill/uL (4.70-6.10); White Blood Cell (WBC) Count 18.1 thou/uL (4.8-10.8)
[2021-08-22 05:37] LABS: ALT (SGPT) 21 U/L (8-55); AST (SGOT) 21 U/L (5-34); Albumin 2.5 g/dL (3.5-5.0); Alkaline Phosphatase 371 U/L (40-110); Anion Gap 15 mmol/L (10-20); BUN (Urea Nitrogen) 45 mg/dL (8.4-25.7); Bilirubin, Total 0.8 mg/dL (0.2-1.2); Calc. Creatinine Clearance 16 mL/min (70-130); Calcium 7.7 mg/dL (7.8-10.44); Carbon Dioxide 27 mmol/L (22-29); Chloride 90 mmol/L (98-107); Globulin 3.5 g/dL (2.4-3.5); Glucose 343 mg/dL (70-105); Potassium 4.3 mmol/L (3.5-5.1); Sodium 128 mmol/L (136-145)
[2021-08-22] MEDS: HumaLOG 300 UNITS/3 ML VIAL SC PRN ×2 (06:27→21:18)
[2021-08-22] MEDS: Levothyroxine Sodium 50 MCG TAB PO SCH (06:27)
[2021-08-22] MEDS ORDERED: HumaLOG 300 UNITS/3 ML VIAL SC PRN (07:05)
[2021-08-22 08:42] LABS: Vancomycin, Random 15.2 ug/mL (See Comment)
[2021-08-22] MEDS ORDERED: Vancomycin HCl 250 MG in Sodium Chloride 0.9% 100 ML IVPB SCH (09:00)
[2021-08-22] MEDS: Carvedilol 3.125 MG TAB PO SCH ×2 (09:37→18:20)
[2021-08-22] MEDS: Atorvastatin Calcium 40 MG TAB PO SCH (09:38)
[2021-08-22] MEDS: Ferrous Sulfate 325 MG TAB PO SCH (09:38)
[2021-08-22] MEDS: Calcium Carbonate 500 MG ChewTAB PO SCH ×3 (09:39→21:16)
[2021-08-22] MEDS: Cholecalciferol 1,000 UNITS (25 MCG) TAB PO SCH (09:40)
[2021-08-22] MEDS: Dexamethasone 4 mg/ml Vial SLOW IVP SCH (09:41)
[2021-08-22] MEDS: Losartan 25 MG TAB PO SCH (09:42)
[2021-08-22] MEDS: Folic Acid/Vit B Comp W-C PO SCH (09:42)
[2021-08-22] MEDS: Vancomycin HCl 250 MG in Sodium Chloride 0.9% 100 ML IVPB SCH ×2 (16:07→17:15)
[2021-08-22] MEDS: Cefepime 1 GM in Sodium Chloride 0.9% 100 ML IVPB SCH (18:20)
[2021-08-22] MEDS: Lantus 1000 UNITS/10 ML VIAL SC SCH (21:17)
[2021-08-23] MEDS: Levothyroxine Sodium 50 MCG TAB PO SCH (06:12)
[2021-08-23 06:24] LABS: Anion Gap 16 mmol/L (10-20); BUN (Urea Nitrogen) 30 mg/dL (8.4-25.7); Calc. Creatinine Clearance 23 mL/min (70-130); Calcium 7.9 mg/dL (7.8-10.44); Carbon Dioxide 26 mmol/L (22-29); Chloride 96 mmol/L (98-107); Glucose 214 mg/dL (70-105); Potassium 3.8 mmol/L (3.5-5.1); Sodium 134 mmol/L (136-145)
[2021-08-23 07:00] LABS: Mean Corpuscular HGB CONC 31.8 g/dL (32.0-36.0); Mean Corpuscular Hemoglobin 31.7 pg (27.0-31.0); Mean Corpuscular Volume 99.8 fL (78.0-98.0); Mean Platelet Volume 9.7 fL (7.4-10.4); Platelet Count 173 thou/uL (130-400); RBC Distribution Width 13.9 % (11.5-14.5); Red Blood Cell (RBC) Count 3.48 mill/uL (4.70-6.10); White Blood Cell (WBC) Count 18.1 thou/uL (4.8-10.8)
[2021-08-23 08:27] LABS: Band 11 % (5-11); Lymphocytes 9 % (21-51); MDiff Complete? YES; Metamyelocyte 1 % (0-0); Monocytes 1 % (0-10); Neutrophil 78 % (42-75); Platelet Morphology Comment Appears Adequate; Polychromasia SLIGHT = 2-3 cells (100X) (0-2/hpf)
[2021-08-23] MEDS: Dexamethasone 4 mg/ml Vial SLOW IVP SCH (09:22)
[2021-08-23] MEDS: Folic Acid/Vit B Comp W-C PO SCH (09:23)
[2021-08-23] MEDS: Calcium Carbonate 500 MG ChewTAB PO SCH ×3 (09:23→20:01)
[2021-08-23] MEDS: Losartan 25 MG TAB PO SCH (09:23)
[2021-08-23] MEDS: Carvedilol 3.125 MG TAB PO SCH ×2 (09:23→17:24)
[2021-08-23] MEDS: Ferrous Sulfate 325 MG TAB PO SCH (09:23)
[2021-08-23] MEDS: Atorvastatin Calcium 40 MG TAB PO SCH (09:23)
[2021-08-23] MEDS: Cholecalciferol 1,000 UNITS (25 MCG) TAB PO SCH (09:23)
[2021-08-23] MEDS: Cefepime 1 GM in Sodium Chloride 0.9% 100 ML IVPB SCH (09:29)
[2021-08-23] MEDS ORDERED: Fentanyl 250 MCG/5 ML VIAL ONE ×2 (16:46→18:06)
[2021-08-23] MEDS ORDERED: traMADol HCl 50 MG TAB PO PRN (17:01)
[2021-08-23] MEDS ORDERED: Acetaminophen 500 MG TAB PO PRN (17:01)
[2021-08-23] MEDS ORDERED: Ondansetron PF 4 MG/2 ML Vial ONE (17:10)
[2021-08-23] MEDS ORDERED: Lidocaine 1% PF 5 ML VIAL ONE (17:10)
[2021-08-23] MEDS ORDERED: ePHEDrine 50 MG/ML VIAL ONE (17:10)
[2021-08-23] MEDS ORDERED: PROPOFOL 200 MG/20 ML VIAL ONE (17:10)
[2021-08-23] MEDS ORDERED: Glycopyrrolate 0.2 MG/ML 5 ML SYRINGE ONE (17:10)
[2021-08-23] MEDS: HYDROcodone/Acetaminophen 5/325 mg Tablet PO PRN (19:57)
[2021-08-23] MEDS: Ciprofloxacin 500 MG TAB PO SCH (19:57)
[2021-08-23] MEDS: Gabapentin 300 MG CAP PO SCH (19:58)
[2021-08-23] MEDS: Lantus 1000 UNITS/10 ML VIAL SC SCH (20:01)
[2021-08-24] MEDS: HYDROcodone/Acetaminophen 5/325 mg Tablet PO PRN ×5 (00:02→20:07)
[2021-08-24] MEDS: Levothyroxine Sodium 50 MCG TAB PO SCH (05:53)
[2021-08-24] MEDS: Dextrose 50% Abboject 50 ML SYRINGE SLOW IVP PRN (06:46)
[2021-08-24] MEDS: Carvedilol 3.125 MG TAB PO SCH ×2 (08:03→18:58)
[2021-08-24] MEDS: Ferrous Sulfate 325 MG TAB PO SCH (08:04)
[2021-08-24] MEDS: Losartan 25 MG TAB PO SCH (08:04)
[2021-08-24] MEDS: Calcium Carbonate 500 MG ChewTAB PO SCH ×3 (08:05→20:07)
[2021-08-24] MEDS: Atorvastatin Calcium 40 MG TAB PO SCH (08:05)
[2021-08-24] MEDS: Cholecalciferol 1,000 UNITS (25 MCG) TAB PO SCH (08:06)
[2021-08-24] MEDS: Gabapentin 300 MG CAP PO SCH ×3 (08:06→20:07)
[2021-08-24] MEDS: Folic Acid/Vit B Comp W-C PO SCH (08:06)
[2021-08-24] MEDS: Polyethylene Glycol 3350 17 GM Packet PO SCH (08:08)
[2021-08-24] MEDS ORDERED: HumaLOG 300 UNITS/3 ML VIAL SC PRN (08:46)
[2021-08-24 08:52] LABS: Hemoglobin 11.5 g/dL (14.0-18.0); Mean Corpuscular HGB CONC 30.3 g/dL (32.0-36.0); Mean Corpuscular Hemoglobin 31.7 pg (27.0-31.0); Mean Platelet Volume 9.4 fL (7.4-10.4); Platelet Count 156 thou/uL (130-400); RBC Distribution Width 14.3 % (11.5-14.5); Red Blood Cell (RBC) Count 3.62 mill/uL (4.70-6.10)
[2021-08-24 09:04] LABS: Vancomycin, Random 11.1 ug/mL (See Comment)
[2021-08-24 09:08] LABS: ALT (SGPT) 15 U/L (8-55); AST (SGOT) 13 U/L (5-34); Albumin 2.3 g/dL (3.5-5.0); Alkaline Phosphatase 291 U/L (40-110); Anion Gap 18 mmol/L (10-20); BUN (Urea Nitrogen) 38 mg/dL (8.4-25.7); Bilirubin, Total 0.8 mg/dL (0.2-1.2); Calc. Creatinine Clearance 19 mL/min (70-130); Calcium 7.8 mg/dL (7.8-10.44); Carbon Dioxide 22 mmol/L (22-29); Chloride 97 mmol/L (98-107); Globulin 3.3 g/dL (2.4-3.5); Glucose 96 mg/dL (70-105); Potassium 3.8 mmol/L (3.5-5.1); Protein, Total 5.6 g/dL (6.0-8.3); Sodium 133 mmol/L (136-145)
[2021-08-24 09:12] LABS: Band 7 % (5-11); Lymphocytes 11 % (21-51); MDiff Complete? YES; Monocytes 3 % (0-10); Neutrophil 78 % (42-75); Platelet Morphology Comment Appears Adequate; Polychromasia SLIGHT = 2-3 cells (100X) (0-2/hpf); Reactive Lymphocytes 1 % (0-10); Target Cells SLIGHT = 2-5 cells (100X) (0-1/hpf); White Blood Cell (WBC) Count 11.8 thou/uL (4.8-10.8)
[2021-08-24] MEDS ORDERED: Albumin 25% 25 GM/100 ML BOT IVPB SCH (10:45)
[2021-08-24] MEDS: Albumin 25% 25 GM/100 ML BOT IVPB SCH ×2 (14:21→20:06)
[2021-08-24] MEDS: Ciprofloxacin 500 MG TAB PO SCH (20:07)
[2021-08-24] MEDS: Lantus 1000 UNITS/10 ML VIAL SC SCH (20:38)
[2021-08-25] MEDS: Albumin 25% 25 GM/100 ML BOT IVPB SCH ×2 (01:00→05:25)
[2021-08-25] MEDS: HYDROcodone/Acetaminophen 5/325 mg Tablet PO PRN ×4 (02:23→20:58)
[2021-08-25] MEDS: Levothyroxine Sodium 50 MCG TAB PO SCH (05:25)
[2021-08-25] MEDS: HumaLOG 300 UNITS/3 ML VIAL SC PRN ×2 (06:19→11:05)
[2021-08-25 07:14] LABS: Anion Gap 9 mmol/L (10-20); BUN (Urea Nitrogen) 23 mg/dL (8.4-25.7); Calc. Creatinine Clearance 24 mL/min (70-130); Calcium 7.9 mg/dL (7.8-10.44); Carbon Dioxide 34 mmol/L (22-29); Chloride 95 mmol/L (98-107); Glucose 258 mg/dL (70-105); Potassium 3.8 mmol/L (3.5-5.1); Sodium 134 mmol/L (136-145)
[2021-08-25] MEDS: Atorvastatin Calcium 40 MG TAB PO SCH (09:01)
[2021-08-25] MEDS: Ferrous Sulfate 325 MG TAB PO SCH (09:01)
[2021-08-25] MEDS: Folic Acid/Vit B Comp W-C PO SCH (09:02)
[2021-08-25] MEDS: Calcium Carbonate 500 MG ChewTAB PO SCH ×4 (09:02→20:51)
[2021-08-25] MEDS: Gabapentin 300 MG CAP PO SCH ×3 (09:02→20:51)
[2021-08-25] MEDS: Cholecalciferol 1,000 UNITS (25 MCG) TAB PO SCH (09:02)
[2021-08-25] MEDS: Polyethylene Glycol 3350 17 GM Packet PO SCH (09:03)
[2021-08-25] MEDS ORDERED: Apixaban 5 MG TAB PO SCH (09:45)
[2021-08-25] MEDS ORDERED: Apixaban 2.5 MG TAB PO SCH ×2 (09:45→21:00)
[2021-08-25] MEDS: Carvedilol 3.125 MG TAB PO SCH ×2 (09:59→16:32)
[2021-08-25 10:08] LABS: Band 4 % (5-11); Eosinophils 8 % (0-10); Hemoglobin 9.5 g/dL (14.0-18.0); Lymphocytes 13 % (21-51); MDiff Complete? YES; Macrocytosis SLIGHT = 6-15 cells (100X) (0-5/hpf); Mean Corpuscular HGB CONC 32.1 g/dL (32.0-36.0); Mean Corpuscular Hemoglobin 32.2 pg (27.0-31.0); Mean Platelet Volume 9.7 fL (7.4-10.4); Monocytes 5 % (0-10); Neutrophil 68 % (42-75); Platelet Count 135 thou/uL (130-400); Platelet Morphology Comment Appears Adequate; Polychromasia SLIGHT = 2-3 cells (100X) (0-2/hpf); RBC Distribution Width 13.8 % (11.5-14.5); Reactive Lymphocytes 2 % (0-10); Red Blood Cell (RBC) Count 2.95 mill/uL (4.70-6.10); White Blood Cell (WBC) Count 8.2 thou/uL (4.8-10.8)
[2021-08-25] MEDS ORDERED: Losartan 25 MG TAB PO SCH (10:30)
[2021-08-25] MEDS: traMADol HCl 50 MG TAB PO PRN ×2 (11:05→18:16)
[2021-08-25] MEDS: Ciprofloxacin 500 MG TAB PO SCH (20:51)
[2021-08-25] MEDS: Lantus 1000 UNITS/10 ML VIAL SC SCH (20:51)
[2021-08-26] MEDS ORDERED: Lactated Ringer's 500 ML IV SCH (00:45)
[2021-08-26] MEDS: HYDROcodone/Acetaminophen 5/325 mg Tablet PO PRN ×2 (02:43→06:43)
[2021-08-26] MEDS: Levothyroxine Sodium 50 MCG TAB PO SCH (06:39)
[2021-08-26 07:24] LABS: #Basophils 0.1 thou/uL (0.0-0.2); #Eosinphils 0.8 thou/uL (0.0-0.7); #Lymphocytes 2.2 thou/uL (1.20-3.40); #Monocytes 0.8 thou/uL (0.11-0.59); #Neutrophils 8.1 thou/uL (1.40-6.50); %Basophils 0.7 % (0.0-1.0); %Eosinophils 6.9 % (0.0-10.0); %Lymphocytes 18.6 % (21.0-51.0); %Monocytes 6.6 % (0.0-10.0); %Neutrophils 67.2 % (42.0-75.0); Hemoglobin 9.8 g/dL (14.0-18.0); Mean Corpuscular HGB CONC 31.9 g/dL (32.0-36.0); Mean Corpuscular Hemoglobin 32.5 pg (27.0-31.0); Mean Platelet Volume 9.6 fL (7.4-10.4); Platelet Count 147 thou/uL (130-400); RBC Distribution Width 14.4 % (11.5-14.5); Red Blood Cell (RBC) Count 3.02 mill/uL (4.70-6.10)
[2021-08-26 07:38] LABS: Calcium 7.7 mg/dL (7.8-10.44); Chloride 94 mmol/L (98-107); Potassium 4.2 mmol/L (3.5-5.1); Sodium 133 mmol/L (136-145)
[2021-08-26 07:39] LABS: Glucose 110 mg/dL (70-105)
[2021-08-26 07:40] LABS: Anion Gap 12 mmol/L (10-20); Carbon Dioxide 31 mmol/L (22-29)
[2021-08-26 07:42] LABS: Calc. Creatinine Clearance 21 mL/min (70-130)
[2021-08-26 07:43] LABS: BUN (Urea Nitrogen) 30 mg/dL (8.4-25.7)
[2021-08-26] MEDS ORDERED: Losartan 25 MG TAB PO SCH (09:00)
[2021-08-26] MEDS ORDERED: Albumin 25% 25 GM/100 ML BOT IVPB SCH (09:00)
[2021-08-26] MEDS ORDERED: Sodium Bicarb 50 MEQ/50 ML Abboject 8.4% SYRINGE ONE (10:37)
[2021-08-26] MEDS ORDERED: Calcium Chloride 1 GM/10 ML Abboject SYRINGE ONE (10:37)
[2021-08-26] MEDS ORDERED: Dextrose 50% Abboject 50 ML SYRINGE ONE (10:37)
[2021-08-26] MEDS ORDERED: EPINEPHrine 1 MG/10 ML Abboject SYRINGE ONE (10:37)
[2021-08-26 11:20] VITALS: BP 93/38; TEMP 98.2
== END 2021-08-26 16:05 | disposition expired | DRG 853 ==
LOC: ERS 08:55 → 2NO 11:20 → 2SW 08-18 09:44 → OBSVTOIN 08-19 11:21
PROVIDERS: ADMIT Family Medicine; ATTEND Family Medicine
PROC: 8E0ZXY6 Isolation (ICD-10-PCS; principal; 2021-08-19)
PROC: 0QBM0ZZ Excision of Left Tarsal, Open Approach (ICD-10-PCS; 2021-08-19)
PROC: 5A1D70Z Performance of Urinary Filtration, Intermittent, Less than 6 Hours Per Day (ICD-10-PCS; 2021-08-20)
PROC: 0Y6J0Z1 Detachment at Left Lower Leg, High, Open Approach (ICD-10-PCS; 2021-08-23)
PROC: 3E033XZ Introduction of Vasopressor into Peripheral Vein, Percutaneous Approach (ICD-10-PCS; 2021-08-26)
PROC: 5A12012 Performance of Cardiac Output, Single, Manual (ICD-10-PCS; 2021-08-26)
DX: A41.59 Other Gram-negative sepsis (principal); L89.624 Pressure ulcer of left heel, stage 4; U07.1 COVID-19; N18.6 End stage renal disease; J18.9 Pneumonia, unspecified organism; J12.82 Pneumonia due to coronavirus disease 2019; J96.01 Acute respiratory failure with hypoxia; E11.52 Type 2 diabetes mellitus with diabetic peripheral angiopathy with gangrene; I48.92 Unspecified atrial flutter; E87.1 Hypo-osmolality and hyponatremia; I96 Gangrene, not elsewhere classified; I69.351 Hemiplegia and hemiparesis following cerebral infarction affecting right dominant side; I48.20 Chronic atrial fibrillation, unspecified; I12.0 Hypertensive chronic kidney disease with stage 5 chronic kidney disease or end stage renal disease; J91.8 Pleural effusion in other conditions classified elsewhere; Z23 Encounter for immunization; E11.22 Type 2 diabetes mellitus with diabetic chronic kidney disease; I25.5 Ischemic cardiomyopathy; I25.10 Atherosclerotic heart disease of native coronary artery without angina pectoris; E11.621 Type 2 diabetes mellitus with foot ulcer; E11.65 Type 2 diabetes mellitus with hyperglycemia; E78.5 Hyperlipidemia, unspecified; D63.1 Anemia in chronic kidney disease; G47.33 Obstructive sleep apnea (adult) (pediatric); E87.5 Hyperkalemia; F12.10 Cannabis abuse, uncomplicated; F10.11 Alcohol abuse, in remission; E83.51 Hypocalcemia; I95.9 Hypotension, unspecified; I46.9 Cardiac arrest, cause unspecified; Z99.2 Dependence on renal dialysis; Z82.49 Family history of ischemic heart disease and other diseases of the circulatory system; Z89.511 Acquired absence of right leg below knee; Z95.0 Presence of cardiac pacemaker; Z98.890 Other specified postprocedural states; Z82.3 Family history of stroke; Z87.891 Personal history of nicotine dependence; Z79.899 Other long term (current) drug therapy; Z79.01 Long term (current) use of anticoagulants; Z79.890 Hormone replacement therapy; Z95.1 Presence of aortocoronary bypass graft; Z83.3 Family history of diabetes mellitus
CPT/HCPCS: 0240U; 36415; 36416; 36600; 70450; 71045; 71275; 76705; 80048; 80053; 80074; 80202; 82010; 82550; 82553; 82805; 82977; 83036; 83605; 84145; 84484; 85025; 85652; 86140; 86850; 86900; 86901; 87040; 87077; 87149; 87186; 88307; 88311; 90935; 93005; 93306; 94760; 96365; 96367; 96375; A9579; G0257; G0378; J0171; J0692; J0696; J1100; J1815; J2405; J2543; J2704; J3010; J3370; J3490; J7050; J7120; P9047; Q5105; Q9967